=== PATIENT | female | born 1960 | race Caucasian/White ===

== ENCOUNTER 2018-03-22 13:34 | Inpatient (IN) ==
[2018-03-22] MEDS ORDERED: Vancomycin 1,000 MG VIAL IVPB ONE (13:47)
[2018-03-22] MEDS ORDERED: Piperacillin/Tazobactam 3.375 GM in 0.9 % Sodium Chloride Mini Bag 100 ML IVPB ONE (13:47)
[2018-03-22] MEDS ORDERED: methylPREDNISolone 125 MG/2 ML VIAL IVP ONE (13:49)
[2018-03-22] MEDS ORDERED: Ipratropium/Albuterol Neb 3 ML IH ONE (13:49)
[2018-03-22] MEDS ORDERED: Isovue-370 500 ML INFUS..BTL IV ONE (13:49)
--- NOTE | 2018-03-22 14:10 | Emergency Department Note ---
Disposition Clinical Impression: Acute exacerbation of chronic obstructive airways disease, Hypoxia Community acquired pneumonia Qualifiers: Laterality: unspecified laterality Qualified Code(s): J18.9 - Pneumonia, unspecified organism Acute and chronic respiratory failure Qualifiers: Respiratory failure complication: hypoxia Qualified Code(s): J96.21 - Acute and chronic respiratory failure with hypoxia Disposition: Admitted As Inpatient Condition: Good Referrals: Neeraj Heller, PAC [Physician Fitness Professional] - Time of Disposition: 16:46 General Adult HPI - General Stated complaint: DAYSI Time Seen by Provider: 03/22/18 13:41 Source: patient Limitations: no limitations Nursing Notes Reviewed: Yes Vital Signs Reviewed: Yes - History of Present Illness HPI Narrative: Ms. Dooley is a very pleasant 58-year-old female with a past history of COPD who presents to the [facility] emergency department with a chief complaint of shortness breath. She reports that the symptoms been present for the last several days. Patient was last seen for these complaints on 02/16/18. There [facility] emergency department was not have a COPD exacerbation. Patient did receive Levaquin, breathing treatments and was discharged home on steroids after patient refused admission. That was states that her shortness of breath is worse this time around compared to last time. Patient denies any recent sick contacts or recent illnesses. Patient was recently seen last week for these complaints and was only given additional breathing treatments to take at home. No further antibiotics or steroids were given. Patient denies any other complaints such as chest pain, nausea vomiting , diaphoresis, abdominal pain, fevers, headache, change in vision, worsening lower extremity edema. Patient is still smoking 0.5 packs per day. All other complaints at this time. Pain Scale: 0 - Related Data Home Medications Medication Instructions Recorded Confirmed Buprenorphine HCl/Naloxone HCl 1.75 each SL DAILY 03/22/18 03/22/18 [Suboxone 8 mg-2 mg Sl Film] Gabapentin [Neurontin] 600 mg PO TID 03/22/18 03/22/18 Allergies Allergy/AdvReac Type Severity Reaction Status Date / Time Iodinated Contrast- Oral and Allergy Rash Verified 03/22/18 15:34 IV Dye Review of Systems: As Per HPI Past Medical History - Past Medical History Medical history: Reports: arthritis, COPD Surgical history: Reports: appendectomy, cholecystectomy, hysterectomy, knee replacement, pacemaker/AICD Psychiatric history: Reports: anxiety, bipolar, depression PYROTECHNICIAN history: Reports: non-contributory - Social History Smoking Status: Current every day smoker Smokeless Tobacco Status: No Alcohol use: Reports: none Drug use: Reports: none Physical Exam CONSTITUTIONAL: Alert and oriented X3 in mild respiratory distress HEAD: Normocephalic; atraumatic. RESP: NRD without use of accessory musculature, diffuse coarse crackles CARD: Regular rhythm, without murmurs, rubs, or gallop ABD: grossly normal, soft, non-tender, no guarding/distention/rigidity SKIN: normal appearance, no pallor/diaphoresis,mottling,jaundice,cyanosis EXT: DP/Rad pulses 2+ and symmetrical; no lateralizing edema with chronic lymphedema PSYCH: appropriate mood/affect - General Limitations: no limitations General appearance: alert Course Course Narrative: Patient was seen and examined at bedside. Initial vitals demonstrated hypoxia of 70% on room air. 6 L of O2 was applied and oxygenation increased to 85%. Respiratory was contacted to administer BiPAP. Physical examination demonstrates patient who is in mild acute respiratory distress. Patient reviews diffuse coarse crackles. Remainder of physical exam was unremarkable. Patient has responded well to BiPAP oxygenation up into the 90s. Patient will be given steroids, breathing treatments will be covered with IV antibiotics with Zosyn and vancomycin. Blood cultures, CBC, CMP, lactic acid, BNP, coags, troponin, 12-lead EKG and CT of the chest will be ordered. Anticipate patient will be admitted for acute on chronic respiratory failure secondary to COPD exacerbation. Disposition pending. 1646: Chest x-ray shows mild atelectasis. CBC shows mild leukocytosis of 15.2. Remainder of the CMP, CBC, lactic acid, BNP, coags and twelve-lead EKG were unremarkable. Troponin came back at 0.20. Patient was given 325 aspirin. Repeat 12-lead EKG demonstrated no further ischemic changes. Patient was slated for CT of the chest rule out possible PE but the IV access failed all she was at CT and had to cancel the study. Patient will be redosed and rescheduled for repeat CTA of the chest. Patient appears comfortable and hemodynamically stable at this time. Patient has been tolerating BiPAP without concern. Discussed the case with hospitalist, Dr. Luna who took the patient for admission. No further recommendations per hospital team. Patient will be transported up to the floor prior to her repeat CTA. This disposition and plan was discussed with patient who understands and agrees. All questions and concerns were addressed. Vital Signs Temperature 98.7 F 03/22/18 13:39 Pulse Rate 106 03/22/18 13:39 Respiratory Rate 16 03/22/18 13:39 Blood Pressure 72/53 03/22/18 13:39 O2 Sat by Pulse Oximetry 79 03/22/18 13:39 Temperature 98.7 F 03/22/18 13:39 Pulse Rate 95 03/22/18 15:24 Respiratory Rate 20 03/22/18 16:43 Blood Pressure 113/81 03/22/18 15:24 O2 Sat by Pulse Oximetry 95 03/22/18 15:24 Oxygen Delivery Oxygen Delivery Bipap Medical Decision Making - Medical Records Medical records reviewed: Yes I reviewed the patient's medical records. - Lab Data Lab results reviewed: Yes I reviewed the patient's lab results. Result diagrams: 03/22/18 14:12 03/22/18 14:12 Lab Results 03/22/18 03/22/18 03/22/18 Range/Units 14:12 14:12 14:12 WBC 15.5 H (4.3-11.1) K/mcL RBC 5.53 H (3.82-4.97) M/mcL Hgb 15.9 H (11.5-15.4) g/dL Hct 50.4 H (35.3-44.9) % MCV 91.1 (83.0-100.0) fL MCH 28.8 (28.0-33.3) pg MCHC 31.5 L (31.6-35.5) g/dL RDW 17.9 H (11.5-14.5) % Plt Count 227 (140-400) K/mcL MPV 10.3 (9.4-12.4) fL Immature Gran % 0.6 (0-4) % Seg Neutrophils % 87.7 % Lymphocytes % 4.7 % Monocytes % 6.8 % Eosinophils % 0.0 % Basophils % 0.2 % Neutrophils # 13.6 H (1.6-8.9) K/mcL Lymphocytes # 0.7 (0.6-4.6) K/mcL Monocytes # 1.1 (0.0-1.3) K/mcL Eosinophils # 0.0 (0.0-0.6) K/mcL Basophils # 0.0 (0.0-0.2) K/mcL PT 13.5 H (9.4-12.1) Seconds INR 1.2 APTT 29.7 (26.0-36.0) Seconds Sodium (136-145) mEq/L Potassium (3.5-5.1) mEq/L Chloride (98-107) mEq/L Carbon Dioxide (23-29) mEq/L BUN (6-20) mg/dL Creatinine (0.60-1.20) mg/dL Est GFR ( Amer) (> 60) Est GFR (Non-Af Amer) (> 60) BUN/Creatinine Ratio (6-26) Glucose (70-105) mg/dL Calculated Osmolality (280-300) Lactic Acid (0.5-2.2) mmol/L Calcium (8.6-10.3) mg/dL Total Bilirubin 1.2 H (0.3-1.0) mg/dL Direct Bilirubin 0.4 H (0.0-0.2) mg/dL Indirect Bilirubin 0.8 (0.0-1.2) mg/dL AST 34 (13-39) Units/L ALT 34 (7-52) Units/L Alkaline Phosphatase 116 H (34-104) Units/L Troponin I (< 0.04) ng/mL B-Natriuretic Peptide (Less than 100) pg/mL Serum Total Protein 7.4 (6.4-8.9) g/dL Albumin 3.9 (3.5-5.7) g/dL Globulin 3.5 (2.4-3.5) g/dL Albumin/Globulin Ratio 1.1 (1.1-2.2) 03/22/18 03/22/18 03/22/18 Range/Units 14:12 14:12 14:12 WBC (4.3-11.1) K/mcL RBC (3.82-4.97) M/mcL Hgb (11.5-15.4) g/dL Hct (35.3-44.9) % MCV (83.0-100.0) fL MCH (28.0-33.3) pg MCHC (31.6-35.5) g/dL RDW (11.5-14.5) % Plt Count (140-400) K/mcL MPV (9.4-12.4) fL Immature Gran % (0-4) % Seg Neutrophils % % Lymphocytes % % Monocytes % % Eosinophils % % Basophils % % Neutrophils # (1.6-8.9) K/mcL Lymphocytes # (0.6-4.6) K/mcL Monocytes # (0.0-1.3) K/mcL Eosinophils # (0.0-0.6) K/mcL Basophils # (0.0-0.2) K/mcL PT (9.4-12.1) Seconds INR APTT (26.0-36.0) Seconds Sodium 136 (136-145) mEq/L Potassium 4.2 (3.5-5.1) mEq/L Chloride 99 (98-107) mEq/L Carbon Dioxide 30 H (23-29) mEq/L BUN 35 H (6-20) mg/dL Creatinine 1.00 (0.60-1.20) mg/dL Est GFR ( Amer) > 60 (> 60) Est GFR (Non-Af Amer) 57 L (> 60) BUN/Creatinine Ratio 35 H (6-26) Glucose 128 H (70-105) mg/dL Calculated Osmolality 292 (280-300) Lactic Acid 1.4 (0.5-2.2) mmol/L Calcium 9.2 (8.6-10.3) mg/dL Total Bilirubin (0.3-1.0) mg/dL Direct Bilirubin (0.0-0.2) mg/dL Indirect Bilirubin (0.0-1.2) mg/dL AST (13-39) Units/L ALT (7-52) Units/L Alkaline Phosphatase (34-104) Units/L Troponin I 0.20 H* (< 0.04) ng/mL B-Natriuretic Peptide 247 H (Less than 100) pg/mL Serum Total Protein (6.4-8.9) g/dL Albumin (3.5-5.7) g/dL Globulin (2.4-3.5) g/dL Albumin/Globulin Ratio (1.1-2.2) - Radiology Data Radiology results reviewed: Yes I reviewed the patient's radiology results. Chest X-Ray 03/22/18 13:48 IMPRESSION: Minimal linear atelectasis right mid lung new from prior exam. D/ / 03/22/2018 14:33:40 Alejandro Tejada MD / ata Interpreting Provider: Alejandro Tejada MD Chest X-Ray 03/22/18 13:48 IMPRESSION: Minimal linear atelectasis right mid lung new from prior exam. D/ / 03/22/2018 14:33:40 Alejandro Tejada MD / ata Interpreting Provider: Alejandro Tejada MD - EKG Data EKG #1 EKG attestation: Yes I reviewed and interpreted this EKG. EKG #2 EKG attestation: Yes I reviewed and interpreted this EKG. Attestation Statement - Attestation Attestation: I, Winston Reyes DO, examined this patient [id number] and my medical decision-making was reviewed with Ranjith Hicks PGY-1, Resident Physician. I agree with the documented findings, disposition and treatment plan as described except to the extent set forth below. Please see my progress notes for details.
--- NOTE | 2018-03-22 14:48 | Emergency Department Note ---
Disposition Clinical Impression: Acute exacerbation of chronic obstructive airways disease, Community acquired pneumonia, Hypoxia Disposition: Admitted As Inpatient Condition: Fair Referrals: Neeraj Heller, PAC [Primary Care Provider] - Time of Disposition: 16:30 General Adult HPI - General Chief complaint: ED Shortness of Breath/Dyspnea Stated complaint: DAYSI Time Seen by Provider: 03/22/18 13:41 Source: patient Limitations: no limitations - History of Present Illness Pain Scale: 0 - Related Data Home Medications Medication Instructions Recorded Confirmed Buprenorphine HCl/Naloxone HCl 1.75 each SL DAILY 03/22/18 03/22/18 [Suboxone 8 mg-2 mg Sl Film] Gabapentin [Neurontin] 600 mg PO TID 03/22/18 03/22/18 Allergies Allergy/AdvReac Type Severity Reaction Status Date / Time Iodinated Contrast- Oral and Allergy Rash Verified 03/22/18 15:34 IV Dye Past Medical History - Past Medical History Medical history: Reports: arthritis, COPD Surgical history: Reports: appendectomy, cholecystectomy, hysterectomy, knee replacement, pacemaker/AICD Psychiatric history: Reports: anxiety, bipolar, depression ADVANCE SCOUT history: Reports: non-contributory - Social History Smoking Status: Current every day smoker Smokeless Tobacco Status: No Alcohol use: Reports: none Drug use: Reports: none Physical Exam - General Limitations: no limitations General appearance: alert Course Vital Signs Temperature 98.7 F 03/22/18 13:39 Pulse Rate 106 03/22/18 13:39 Respiratory Rate 16 03/22/18 13:39 Blood Pressure 72/53 03/22/18 13:39 O2 Sat by Pulse Oximetry 79 03/22/18 13:39 Temperature 98.7 F 03/22/18 13:39 Pulse Rate 95 03/22/18 15:24 Respiratory Rate 20 03/22/18 15:24 Blood Pressure 113/81 03/22/18 15:24 O2 Sat by Pulse Oximetry 95 03/22/18 15:24 Oxygen Delivery Oxygen Delivery Bipap Medical Decision Making - Lab Data Result diagrams: 03/22/18 14:12 03/22/18 14:12 Lab Results 03/22/18 03/22/18 03/22/18 Range/Units 14:12 14:12 14:12 WBC 15.5 H (4.3-11.1) K/mcL RBC 5.53 H (3.82-4.97) M/mcL Hgb 15.9 H (11.5-15.4) g/dL Hct 50.4 H (35.3-44.9) % MCV 91.1 (83.0-100.0) fL MCH 28.8 (28.0-33.3) pg MCHC 31.5 L (31.6-35.5) g/dL RDW 17.9 H (11.5-14.5) % Plt Count 227 (140-400) K/mcL MPV 10.3 (9.4-12.4) fL Immature Gran % 0.6 (0-4) % Seg Neutrophils % 87.7 % Lymphocytes % 4.7 % Monocytes % 6.8 % Eosinophils % 0.0 % Basophils % 0.2 % Neutrophils # 13.6 H (1.6-8.9) K/mcL Lymphocytes # 0.7 (0.6-4.6) K/mcL Monocytes # 1.1 (0.0-1.3) K/mcL Eosinophils # 0.0 (0.0-0.6) K/mcL Basophils # 0.0 (0.0-0.2) K/mcL PT 13.5 H (9.4-12.1) Seconds INR 1.2 APTT 29.7 (26.0-36.0) Seconds Sodium (136-145) mEq/L Potassium (3.5-5.1) mEq/L Chloride (98-107) mEq/L Carbon Dioxide (23-29) mEq/L BUN (6-20) mg/dL Creatinine (0.60-1.20) mg/dL Est GFR ( Amer) (> 60) Est GFR (Non-Af Amer) (> 60) BUN/Creatinine Ratio (6-26) Glucose (70-105) mg/dL Calculated Osmolality (280-300) Lactic Acid (0.5-2.2) mmol/L Calcium (8.6-10.3) mg/dL Total Bilirubin 1.2 H (0.3-1.0) mg/dL Direct Bilirubin 0.4 H (0.0-0.2) mg/dL Indirect Bilirubin 0.8 (0.0-1.2) mg/dL AST 34 (13-39) Units/L ALT 34 (7-52) Units/L Alkaline Phosphatase 116 H (34-104) Units/L Troponin I (< 0.04) ng/mL B-Natriuretic Peptide (Less than 100) pg/mL Serum Total Protein 7.4 (6.4-8.9) g/dL Albumin 3.9 (3.5-5.7) g/dL Globulin 3.5 (2.4-3.5) g/dL Albumin/Globulin Ratio 1.1 (1.1-2.2) 03/22/18 03/22/18 03/22/18 Range/Units 14:12 14:12 14:12 WBC (4.3-11.1) K/mcL RBC (3.82-4.97) M/mcL Hgb (11.5-15.4) g/dL Hct (35.3-44.9) % MCV (83.0-100.0) fL MCH (28.0-33.3) pg MCHC (31.6-35.5) g/dL RDW (11.5-14.5) % Plt Count (140-400) K/mcL MPV (9.4-12.4) fL Immature Gran % (0-4) % Seg Neutrophils % % Lymphocytes % % Monocytes % % Eosinophils % % Basophils % % Neutrophils # (1.6-8.9) K/mcL Lymphocytes # (0.6-4.6) K/mcL Monocytes # (0.0-1.3) K/mcL Eosinophils # (0.0-0.6) K/mcL Basophils # (0.0-0.2) K/mcL PT (9.4-12.1) Seconds INR APTT (26.0-36.0) Seconds Sodium 136 (136-145) mEq/L Potassium 4.2 (3.5-5.1) mEq/L Chloride 99 (98-107) mEq/L Carbon Dioxide 30 H (23-29) mEq/L BUN 35 H (6-20) mg/dL Creatinine 1.00 (0.60-1.20) mg/dL Est GFR ( Amer) > 60 (> 60) Est GFR (Non-Af Amer) 57 L (> 60) BUN/Creatinine Ratio 35 H (6-26) Glucose 128 H (70-105) mg/dL Calculated Osmolality 292 (280-300) Lactic Acid 1.4 (0.5-2.2) mmol/L Calcium 9.2 (8.6-10.3) mg/dL Total Bilirubin (0.3-1.0) mg/dL Direct Bilirubin (0.0-0.2) mg/dL Indirect Bilirubin (0.0-1.2) mg/dL AST (13-39) Units/L ALT (7-52) Units/L Alkaline Phosphatase (34-104) Units/L Troponin I 0.20 H* (< 0.04) ng/mL B-Natriuretic Peptide 247 H (Less than 100) pg/mL Serum Total Protein (6.4-8.9) g/dL Albumin (3.5-5.7) g/dL Globulin (2.4-3.5) g/dL Albumin/Globulin Ratio (1.1-2.2) Attestation Statement - Attestation Attestation: I, Winston Reyes DO, examined this patient [id number] and my medical decision-making was reviewed with Ranjith Hicks PGY-1, Resident Physician. I agree with the documented findings, disposition and treatment plan as described except to the extent set forth below. Please see my progress notes for details. 58-year-old female presents to the emergency room with increased work of breathing, hypoxia, hypotension. In the triage process the patient's blood pressure was 72/56. She was also hypoxic around the 70s. Patient denies any trauma or injury. She has been intermittently sick with upper respiratory like symptoms as well as COPD exacerbation over the last several weeks. Patient was seen here approximately 1 month ago by myself and electively decided to be discharged home despite concern for COPD exacerbation and failed outpatient management. Patient does not use oxygen at home and does not have any other specific medical issues at this point. Patient on physical exam does have accessory muscle use she is acutely short of breath and conversationally dyspneic. Vital signs reviewed nurse concerning at this point for hypotension and hypoxia. Immediately respiratory was called secondary to request a have BiPAP and breathing treatments on steroids. Patient does not coarse crackles bilaterally in the lungs. Her heart is tachycardic. Abdomen is soft nontender nondistended no guarding or rigidity. She does have swelling to the bilateral lower extremities at this time with no other acute signs of redness swelling or irritation. Pulses are intact. Patient will also require admission at this time secondary to failed continuation of outpatient treatment. She will be given IV antibiotics fluids nausea medication, breathing treatments and steroids with antibiotics in emergency room. Patient's symptoms will be stabilized and disposition to be determined. See detailed documentation of the physical exam, medical intervention, medical decision-making, disposition and the resident physician's note. No critical care provider this patient's treatment course at this time. [address] over for [address] angiography of the chest. She has a positive chest x- ray with possible pneumonia versus atelectasis. Patient started been started on antibiotics. Patient's pulse ox of breathing of become much less labored and she is resting comfortably in the bed. Her pulse ox is been 96 200% on oxygen of the BiPAP. Patient's labs are unremarkable except for significantly elevated troponin at 0.20. Patient is still denying any chest pain. Most of the symptoms could be consistent or secondary to the patient's respiratory distress. Patient also has a slightly elevated BNP. Diuresis will be held at this point and patient's own passive diuresis will be allowed to take over considering she was initially hypotensive. Patient CT angiography was attempted and infiltrated the idea that time. The extravasation protocol will be started. Patient will be discussed for possible GI bleed or other vaginal related bleeding at this point initially is negative then will discuss with the hospital as possible given her single dose of Lovenox repeat his CT angiography in the inpatient setting despite the fact that we feel most of her symptoms are secondary to severe COPD exacerbation along with her pneumonia. Patient will be observed in emergency room until admission process is completed. 1625 The patient was discussed with the hospitalist. We will get the CT angiography and transit to the floor. Other recommendations from them this time. Patient was given aspirin here. She does not require anticoagulation this point considering you feel that the troponin is secondary to the increased work of breathing and respiratory distress and not her angina. Patient has not had any chest pain. Her presenting symptoms were hypoxia and increased work of breathing. Patient is otherwise clinically stable but requires hospital admission for COPD, CHF, elevated troponin and what appears to be respiratory driven symptoms at this time.
[2018-03-22 15:15] LABS: Basophils % 0.2 %; Hematocrit 50.4 % (35.3-44.9); Hemoglobin 15.9 g/dL (11.5-15.4); Immature Granulocytes % 0.6 % (0-4); Lymphocytes # 0.7 K/mcL (0.6-4.6); Lymphocytes % 4.7 %; Mean Corpuscular HGB Conc 31.5 g/dL (31.6-35.5); Mean Corpuscular Hemoglobin 28.8 pg (28.0-33.3); Mean Corpuscular Volume 91.1 fL (83.0-100.0); Mean Platelet Volume 10.3 fL (9.4-12.4); Monocytes # 1.1 K/mcL (0.0-1.3); Monocytes % 6.8 %; Neutrophils # 13.6 K/mcL (1.6-8.9); Platelet Count 227 K/mcL (140-400); Red Blood Count 5.53 M/mcL (3.82-4.97); Red Cell Distribution Width 17.9 % (11.5-14.5); Segmented Neutrophils % 87.7 %
[2018-03-22 15:17] LABS: INR 1.2; Prothrombin Time 13.5 Seconds (9.4-12.1)
[2018-03-22 15:20] LABS: Activated Partial Thrombo Time 29.7 Seconds (26.0-36.0)
[2018-03-22 15:23] LABS: Albumin 3.9 g/dL (3.5-5.7); Albumin/Globulin Ratio 1.1 (1.1-2.2); Bilirubin,Direct 0.4 mg/dL (0.0-0.2); Bilirubin,Indirect 0.8 mg/dL (0.0-1.2); Bilirubin,Total 1.2 mg/dL (0.3-1.0); Globulin 3.5 g/dL (2.4-3.5); Total Protein 7.4 g/dL (6.4-8.9)
[2018-03-22 15:24] LABS: BUN/Creatinine Ratio 35 (6-26); Blood Urea Nitrogen 35 mg/dL (6-20); Calcium 9.2 mg/dL (8.6-10.3); Carbon Dioxide 30 mEq/L (23-29); Chloride 99 mEq/L (98-107); Glucose 128 mg/dL (70-105); Osmolality,Calculated 292 (280-300); Potassium 4.2 mEq/L (3.5-5.1); Sodium 136 mEq/L (136-145); eGFR For African Americans > 60 (> 60); eGFR For Non-African Americans 57 (> 60)
[2018-03-22] MEDS ORDERED: Aspirin 81 MG TAB.CHEW PO STA (15:32)
[2018-03-22] MEDS ORDERED: *HR* HYDROcodone/Acet 5/325 mg TABLET PO PRN (17:04)
[2018-03-22] MEDS ORDERED: Acetaminophen 325 MG TABLET PO PRN (17:04)
[2018-03-22] MEDS ORDERED: Naloxone 0.4 MG/ML INJ IVP PRN (17:04)
[2018-03-22] MEDS ORDERED: Benzonatate 100 MG CAPSULE PO PRN (17:10)
--- NOTE | 2018-03-22 17:19 | Internal Med History&Physical ---
<JoanneDarius - Last Filed: 03/22/18 18:05> Date of Encounter: 03/22/18 Time of Encounter: 16:30 Internal Medicine - H&P: HPI Chief complaint: SOB/Dyspnea Admitted From: Emergency Dept Plans for Post Hospital Care: Home History of present illness: Ms. Dooley is a 58 year old female w/PMH of arthritis and COPD presents from the ED w/CC of SOB/dyspnea for the past month. Pt. reports sx have worsened over past week. Reports being seen at [facility] on 02/16 for same sx but refused admission and was discharged on steroids after receiving Levaquin and DuoNebs. Does report sick contacts. No alleviating or aggravating factors. Denies cardiac hx or previous w/u. Pt. reports not feeling well w/cough and orthopnea for past week but denies fever, chills, nausea, vomiting, headache, changes in vision, chest congestion, chest pain, palpitations, abdominal pain, diarrhea, constipation, unusual bleeding, dizziness, lightheadedness, pre-syncope, or syncope. Past Med Surg Social Fam HX - Past Medical History Source: patient, old records reviewed Medical history: arthritis, COPD Psychiatric history: anxiety, bipolar, depression - Past Surgical History Surgical History: appendectomy, cholecystectomy, hysterectomy (Total), knee replacement (Bilateral), pacemaker/AICD - Social History Smoking Status: Current every day smoker Packs per day: 1/2 PPD Smokeless Tobacco Status: No Alcohol use: none Drug use: none Current living situation: Home Activity Level: Independent ambulation Recent Out of Country Travel Within the Last 8 Weeks: No Exposure or Possible Exposure to Illness During Travel: No - Family History Daughter Adopted: No Living Status: Still Living Hx Family Cardiac Disorders: Yes Hx Family Respiratory Disorders: Yes Hx Family Cancer: No Hx Family GI Disorders: No Hx Family Endocrine Disorder: No Hx Family Neuromuscular Disorders: No Hx Family Neurologic Disorders: No Hx Family HEENT Disorders: No Hx Family Autoimmune Disorders: No Father Race: Family Member Ethnicity: Non- Living Status: Age at : 80 Cause of : Lung cancer Hx Family Cardiac Disorders: Yes ([place], HTN, HLD) Hx Family Cancer: Yes (Lung, prostate) Mother Race: Family Member Ethnicity: Non- Living Status: Still Living Hx Family Cardiac Disorders: Yes (HTN) Hx Family Musculoskeletal Disorders: Yes (Arthritis) Brother Race: Family Member Ethnicity: Non- Living Status: Still Living Hx Family Cancer: Yes (Prostate ) Hx Family Endocrine Disorder: Yes (DM) Internal Medicine - H&P: Meds Buprenorphine HCl/Naloxone HCl [Suboxone 8 mg-2 mg Sl Film] 1.75 each SL DAILY 03/22/18 [History] Gabapentin [Neurontin] 600 mg PO TID 03/22/18 [History] 3 Allergy/AdvReac Type Severity Reaction Status Date / Time Iodinated Contrast- Oral and Allergy Rash Verified 03/22/18 15:34 IV Dye All Systems PM: A 10-system review of systems was performed and is negative for pertinent findings except as documented above in the HPI. - Constitutional Constitutional: as per HPI, no chills, no fever(s), no night sweats - EENT Eyes: no change in vision, no discharge, no pain, no photophobia Ears: no ear discharge, no ear pain, no tinnitus Nose, mouth and throat: no dysphagia, no nasal discharge, no neck pain, no sore throat - Breasts Breasts: as per HPI - Cardiovascular Cardiovascular ROS IM: as per HPI, dyspnea, dyspnea on exertion, edema ( Bilateral LEs), orthopnea, no chest pain, no diaphoresis, no lightheadedness, no palpitations, no syncope - Respiratory Respiratory: dyspnea on exertion, no cough, no dyspnea, no wheezing, no excessive phlegm production - Gastrointestinal Gastrointestinal: no abdominal pain, no diarrhea, no hematemesis, no hematochezia, no melena, no nausea, no vomiting - Genitourinary Genitourinary: no change in urinary stream, no dysuria, no flank pain, no hematuria Menstruation: as per HPI, post hysterectomy (Total) - Musculoskeletal Musculoskeletal ROS IM: no numbness, no tingling - Integumentary Integumentary IM: no rash, no unusual bruising - Neurological Neurological ROS: no confusion, no convulsions, no focal weakness, no numbness, no tingling, no tremor(s) - Psychiatric Psychiatric: as per HPI, anxiety, depression - Endocrine Endocrine IM: as per HPI - Hematologic/Lymphatic Hematologic/Lymphatic: no easy bruising - Allergic/Immunologic Allergic/Immunologic: as per HPI - Constitutional Vitals: Temp Pulse Resp BP Pulse Ox 98.7 F 95 20 113/81 95 03/22/18 13:39 03/22/18 15:24 03/22/18 16:43 03/22/18 15:24 03/22/18 15:24 General appearance: Present: cooperative, A&O X 3, morbidly obese, pleasant, severe distress (Respiratory d/t hypoxia requiring BiPAP), answers questions appropriately - Head Head exam: Present: atraumatic, normocephalic - Eye Eye exam: Present: PERRL, conjuntiva pink, sclera anicteric Pupils: Present: PERRL - ENT ENT exam: Present: normal exam - Neck Neck exam general surgery: Present: supple, trachea midline. Absent: lymphadenopathy - Respiratory Respiratory exam: Present: accessory muscle use, decreased breath sounds, wheezes - Cardiovascular Cardiovascular exam: Present: +S1, +S2, tachycardia - GI/Abdominal GI/Abdominal exam: Present: normal bowel sounds, soft, no peritoneal signs. Absent: distended, tenderness - Rectal Rectal exam: Present: deferred - Additional comments: exam deferred. - Extremities Exam Extremities exam: Present: pedal edema (Bilateral non-pitting), warm, radial pulses palpable and symmetrical. Absent: calf tenderness, cyanotic - Back Exam Back exam: Present: normal inspection - Neurological Exam Neurological exam: Present: CN II-XII intact, oriented X3, no focal deficits. Absent: pronater drift, facial droop, speech deficit - Psychiatric Psychiatric exam: Present: normal affect, normal mood - Skin Skin exam: Present: dry, intact Internal Med - H&P Results - Labs CBC & Chem 7: 03/22/18 14:12 03/22/18 14:12 - EKG Data EKG shows normal: sinus rhythm Rate: tachycardia - EKG Data Prior EKG available for review: yes Interpretation IM: suggestive of ischemia EKG comments: 03/22/18 17:30 EKG dated 02/16/19 shows sinus rhythm with left atrial enlargement and marked left axis deviation. EKG dated 03/22/18 shows sinus tachycardia with possible left atrial enlargement , incomplete RBBB, left anterior fascicular block, anterior myocardial infarction of indeterminate age, inferior myocardial infarction of indeterminate age, and moderate T-wave abnormality. Consider lateral ischemia. - Diagnostic Studies Chest x-ray Additional comments: Impressions Chest X-Ray 03/22/18 13:48 IMPRESSION: Minimal linear atelectasis right mid lung new from prior exam. D/ / 03/22/2018 14:33:40 Alejandro Tejada MD / [facility] Interpreting Provider: Alejandro Tejada MD - Assessment and plan (1) Acute exacerbation of chronic obstructive airways disease Current Visit: Yes Status: Acute Assessment and plan: Acute exacerbation of COPD. Failed OP therapy on 02/16/18 ED visit/discharge. Received levaquin, DuoNebs in ED and discharged on steroids when she refused admission. Pt. reports SOB/dyspnea much worse. Cough present. Reports sick contacts. BiPAP and supplemental O2 w/titration when not on BiPAP. DuoNebs Q4HR scheduled. Solu-Medrol 60 mg Q8HR. IVPB azithromycin for bronchitis infection coverage. Respiratory infection panel ordered. Monitor pt., respiratory status, f/u labs closely. Assess for possible intubation needs if no improvement. Pt. discussed w/Dr. Luna who agrees w/plan of care. Pt. is high risk for further morbidity and cardiac/respiratory distress d/t current hypoxia, acute exacerbation of COPD, new onset of CHF exacerbation, morbid obesity, and failure of OP tx one month ago. Inpatient. (2) Acute exacerbation of CHF (congestive heart failure) Current Visit: Yes Status: Acute Assessment and plan: New onset of CHF exacerbation. No previous cardiac w/u. Echocardiogram ordered. BNP 247 on admission. 1.5L daily fluid restriction. 40 mg IVP lasix BID. Continuous cardiac telemetry d/t tachycardia. Pt. hypoxic on admission so BiPAP ordered. SpO2 monitoring. Monitor I&O and daily weight. Qualifiers: Heart failure type: unspecified Qualified Code(s): I50.9 - Heart failure, unspecified (3) Hypoxia Current Visit: Yes Status: Acute Assessment and plan: Acute on chronic hypoxia d/t current COPD exacerbation complicated by new CHF exacerbation. BiPAP ordered. Supplemental O2 w/titration and SpO2 monitoring when not on BiPAP. DuoNebs Q4HR scheduled. Tessalon 200 mg TID for cough. Monitor pt. closely for signs of respiratory distress/intubation needs. (4) Sepsis Current Visit: Yes Status: Acute Assessment and plan: Acute sepsis criteria w/WBC of 15.5, HR of 130, RR of 29. Most-likely d/t current hypoxia, but will monitor pt. closely. Lactic acid 1.4 on admission. Pt. received IVPB vancomycin and Zosyn in the ED. (Continue after administration and administer IVPB azithromycin for bronchitis coverage. Blood cultures x2. Respiratory infection panel ordered. Continuous cardiac telemetry. Supplemental O2 w/titration and SpO2 monitoring. BiPAP on/off times. Monitor pt. and f/u lbs. Qualifiers: Sepsis type: sepsis due to unspecified organism Qualified Code(s): A41.9 - Sepsis, unspecified organism (5) Elevated troponin Current Visit: Yes Status: Acute Assessment and plan: Acutely elevated troponin of 0.20 on admission. Most likely demand ischemia d/t current COPD and CHF exacerbations w/hypoxia. Pt. denies CP or cardiac sx, and previous cardiac w/u. Echocardiogram ordered for new CHF and troponin. Will trend x2. Pt. given 324 mg aspirin in ED. Nitro SL PRN ordered. Continuous cardiac telemetry. (6) ANI (acute kidney injury) Current Visit: Yes Status: Acute Assessment and plan: ANI w/GFR of 57 and creatinine of 1.00. Will use IV fluids judiciously, especially d/t CHF exacerbation. 1.5L daily fluid restriction. Monitor I&O and daily weight. (7) Arthritis Current Visit: Yes Status: Chronic Assessment and plan: Hx of chronic arthritis. Tylenol 650 mg Q6HR PRN for mild pain. Toradol for moderate pain ordered. Continue Neurontin. (8) Anxiety and depression Current Visit: Yes Status: Chronic Assessment and plan: Hx of chronic anxiety and bipolar depression. Pt. states well-controlled. Continue pts. Neurontin. (9) Opiate addiction Current Visit: Yes Status: Chronic Assessment and plan: Hx of chronic addiction to opioids. Monitor pt. and continue Suboxone. Qualifiers: Substance use status: with unspecified opioid-induced disorder Qualified Code(s): F11.29 - Opioid dependence with unspecified opioid-induced disorder (10) DVT prophylaxis Current Visit: Yes Status: Acute Assessment and plan: Heparin 5,000 units SQ Q8 for DVT prophylaxis. Monitor pt. for signs of bleeding. - Time Spent With Patient Total time spent is greater than 50% in coordination of care (as documented) at patient's floor/unit and/or counseling patient: 25 - 35 minutes <Terra Luna - Last Filed: 03/22/18 18:19> Date of Encounter: 03/22/18 Internal Medicine - H&P: HPI History of present illness: Ms. Dooley is a 58 year old female All Systems PM: A 10-system review of systems was performed and is negative for pertinent findings except as documented above in the HPI. - Constitutional Vitals: Temp Pulse Resp BP Pulse Ox 97.6 F 90 20 136/81 92 03/22/18 17:20 03/22/18 17:20 03/22/18 17:20 03/22/18 17:20 03/22/18 17:20 Internal Med - H&P Results - Labs CBC & Chem 7: 03/22/18 14:12 03/22/18 14:12 - Attending Attestation I saw and examined this patient independently, and my medical decision making was reviewed with the FARM HELPER/PA on 2017. I agree with the documented findings, assessment and treatment plan as described in the progress note. - Time Spent With Patient Total time spent is greater than 50% in coordination of care (as documented) at patient's floor/unit and/or counseling patient:
[2018-03-22] MEDS ORDERED: Nitroglycerin 0.4 MG TAB.SUBL SL PRN (17:44)
[2018-03-22] MEDS ORDERED: Azithromycin 500 MG in D5% in Water 250 ML IVPB SCH (18:00)
[2018-03-22] MEDS ORDERED: Ketorolac 15 MG/ML VIAL IVP PRN ×2 (18:03→18:05)
[2018-03-22] MEDS: Nicotine 14 MG PATCH.TD24 TD SCH (18:12)
[2018-03-22] MEDS: Furosemide 40 MG/4 ML VIAL IVP SCH (18:13)
[2018-03-22] MEDS: Gabapentin 300 MG CAPSULE PO SCH (19:46)
[2018-03-22] MEDS: Ipratropium/Albuterol Neb 3 ML IH SCH (20:19)
[2018-03-23] MEDS: Ipratropium/Albuterol Neb 3 ML IH SCH ×7 (00:03→23:25)
[2018-03-23] MEDS: methylPREDNISolone 125 MG/2 ML VIAL IVP SCH ×4 (00:19→23:30)
[2018-03-23] MEDS: *HR* Heparin 5,000 UNIT/ML VIAL SQ SCH ×4 (00:19→23:30)
[2018-03-23 03:10] LABS: Basophils % 0.2 %; Hematocrit 47.7 % (35.3-44.9); Hemoglobin 15.3 g/dL (11.5-15.4); Immature Granulocytes % 0.8 % (0-4); Lymphocytes # 0.5 K/mcL (0.6-4.6); Mean Corpuscular HGB Conc 32.1 g/dL (31.6-35.5); Mean Corpuscular Hemoglobin 29.3 pg (28.0-33.3); Mean Corpuscular Volume 91.2 fL (83.0-100.0); Mean Platelet Volume 10.4 fL (9.4-12.4); Monocytes # 0.4 K/mcL (0.0-1.3); Monocytes % 3.5 %; Neutrophils # 9.2 K/mcL (1.6-8.9); Nucleated Red Blood Cells 0.2 /100 WBC (0); Platelet Count 215 K/mcL (140-400); Red Blood Count 5.23 M/mcL (3.82-4.97); Red Cell Distribution Width 17.9 % (11.5-14.5); Segmented Neutrophils % 90.5 %
[2018-03-23 03:31] LABS: Albumin 3.5 g/dL (3.5-5.7); Bilirubin,Total 0.9 mg/dL (0.3-1.0); Calcium 8.9 mg/dL (8.6-10.3); Chol/HDL Ratio 6.5 (0-4.9); Globulin 3.5 g/dL (2.4-3.5); Magnesium 2.4 mg/dL (1.6-2.6); Potassium 4.8 mEq/L (3.5-5.1)
--- NOTE | 2018-03-23 08:27 | Internal Med Progress Note ---
<Santos Luna - Last Filed: 03/23/18 08:23> Date of Encounter: 03/23/18 Time of Encounter: 08:15 - Assessment and plan (1) Acute exacerbation of chronic obstructive airways disease Current Visit: Yes Status: Acute Assessment and plan: Improved. Currently on 6L O2 NC. Acute exacerbation of COPD. Failed OP therapy on 02/16/18 ED visit/discharge. Received levaquin, DuoNebs in ED and discharged on steroids when she refused admission. Continue BiPAP and supplemental O2 w/titration when not on BiPAP. Continue DuoNebs Q4HR scheduled, Solu-Medrol 60 mg Q8HR. IVPB azithromycin for bronchitis infection coverage Day #2. Respiratory infection panel pending. Monitor pt., respiratory status, f/u labs closely. (2) Hypoxia Current Visit: Yes Status: Acute Assessment and plan: Acute on chronic hypoxia d/t current COPD exacerbation complicated by new CHF exacerbation. BiPAP ordered. Supplemental O2 w/titration and SpO2 monitoring when not on BiPAP. DuoNebs Q4HR scheduled. Tessalon 200 mg TID for cough. Monitor pt. closely for signs of respiratory distress/intubation needs. (3) Acute exacerbation of CHF (congestive heart failure) Current Visit: Yes Status: Acute Assessment and plan: New onset of CHF exacerbation. No previous cardiac w/u. Echocardiogram later today. BNP 247 on admission. 1.5L daily fluid restriction. 40 mg IVP lasix BID. Continuous cardiac telemetry d/t tachycardia. Pt. hypoxic on admission so BiPAP ordered. SpO2 monitoring. Monitor I&O and daily weight. Qualifiers: Heart failure type: unspecified Qualified Code(s): I50.9 - Heart failure, unspecified (4) Sepsis Current Visit: Yes Status: Acute Assessment and plan: Improved. Acute sepsis criteria w/WBC of 15.5, HR of 130, RR of 29 on admission. Most-likely d/t current hypoxia. Lactic acid 1.4 on admission. Pt. received IVPB vancomycin and Zosyn in the ED. (Continue after administration and administer IVPB azithromycin for bronchitis coverage. Blood cultures x2. Respiratory infection panel ordered. Continuous cardiac telemetry. Supplemental O2 w/titration and SpO2 monitoring. BiPAP on/off times. Monitor pt. and f/u lbs. Qualifiers: Sepsis type: sepsis due to unspecified organism Qualified Code(s): A41.9 - Sepsis, unspecified organism (5) DVT prophylaxis Current Visit: Yes Status: Acute Assessment and plan: Heparin 5,000 units SQ Q8 for DVT prophylaxis. Monitor pt. for signs of bleeding. (6) Elevated troponin Current Visit: Yes Status: Acute Assessment and plan: Downtrending. Acutely elevated troponin of 0.20 on admission. Most likely demand ischemia d/t current COPD and CHF exacerbations w/hypoxia. Pt. denies CP or cardiac sx, and previous cardiac w/u. Echocardiogram ordered for new CHF and troponin. Will trend x2. Pt. given 324 mg aspirin in ED. Nitro SL PRN ordered. Continuous cardiac telemetry. (7) ANI (acute kidney injury) Current Visit: Yes Status: Acute Assessment and plan: ANI w/GFR of 57 -->49 and creatinine of 1.00 --> 1.14. Will use IV fluids judiciously, especially d/t CHF exacerbation. 1.5L daily fluid restriction. Monitor I&O and daily weight. (8) Arthritis Current Visit: Yes Status: Chronic Assessment and plan: Hx of chronic arthritis. Tylenol 650 mg Q6HR PRN for mild pain. Toradol for moderate pain ordered. Continue Neurontin. (9) Anxiety and depression Current Visit: Yes Status: Chronic Assessment and plan: Hx of chronic anxiety and bipolar depression. Pt. states well-controlled. Continue pts. Neurontin. (10) Opiate addiction Current Visit: Yes Status: Chronic Assessment and plan: Hx of chronic addiction to opioids. Monitor pt. and continue Suboxone. Qualifiers: Substance use status: with unspecified opioid-induced disorder Qualified Code(s): F11.29 - Opioid dependence with unspecified opioid-induced disorder - Time Spent With Patient Total time spent is greater than 50% in coordination of care (as documented) at patient's floor/unit and/or counseling patient: Greater than 35 minutes - Subjective Interval history: Patient reports improvement of shortness of breath, currently on 6L. She was admitted for COPD exacerbation last month and declares no complete resolution of symptoms since that discharge. She denies chest pain, abdominal pain, f/c/v. Does have some nausea. Ate breakfast today. Echo pending. Takes no medications at home except for steroids and gabapentin. No oxygen at home. Not ambulating since admission. No further complaints. - Constitutional Vitals: Temp Pulse Resp BP Pulse Ox 96.5 F L 71 16 116/75 94 03/23/18 06:46 03/23/18 06:46 03/23/18 06:46 03/23/18 06:46 03/23/18 06:46 General appearance: Present: cooperative, A&O X 3, morbidly obese, pleasant, severe distress (Respiratory d/t hypoxia requiring BiPAP), answers questions appropriately - Head Head exam: Present: atraumatic, normocephalic - Eye Eye exam: Present: PERRL, conjuntiva pink, sclera anicteric Pupils: Present: PERRL - Neck Neck exam general surgery: Present: supple, trachea midline. Absent: lymphadenopathy - Respiratory Respiratory exam: Present: rales, wheezes. Absent: accessory muscle use, rhonchi - Cardiovascular Cardiovascular exam: Present: RRR, +S1, +S2. Absent: diastolic murmur, gallop, rubs, systolic murmur - GI/Abdominal GI/Abdominal exam: Present: normal bowel sounds, soft, no peritoneal signs. Absent: distended, tenderness - Extremities Exam Extremities exam: Present: warm, radial pulses palpable and symmetrical. Absent : calf tenderness, cyanotic, pedal edema - Neurological Exam Neurological exam: Present: CN II-XII intact, oriented X3, no focal deficits. Absent: pronater drift, facial droop, speech deficit - Skin Skin exam: Present: dry, intact Internal Medicine: Result - Labs CBC & Chem 7: 03/23/18 02:56 03/23/18 02:56 Labs: Short CBC 03/23/18 Range/Units 02:56 WBC 10.1 (4.3-11.1) K/mcL Hgb 15.3 (11.5-15.4) g/dL Hct 47.7 H (35.3-44.9) % Plt Count 215 (140-400) K/mcL Neutrophils # 9.2 H (1.6-8.9) K/mcL BMP 03/23/18 02:56 Sodium 138 Potassium 4.8 Chloride 103 Carbon Dioxide 28 BUN 36 H Creatinine 1.14 Glucose 138 H Calcium 8.9 Cardiac Enzymes 03/22/18 03/23/18 Range/Units 20:12 02:56 Troponin I 0.13 H* 0.10 H* (< 0.04) ng/mL Liver Function 03/23/18 Range/Units 02:56 Total Bilirubin 0.9 (0.3-1.0) mg/dL AST 27 (13-39) Units/L ALT 26 (7-52) Units/L Alkaline Phosphatase 93 (34-104) Units/L Albumin 3.5 (3.5-5.7) g/dL - ABG Interpretation ABG results: PT/INR, D-dimer PT 13.5 Seconds (9.4-12.1) H 03/22/18 14:12 Consult Discharge Plan - Plan Referrals: Neeraj Heller, PAC [Primary Care Provider] - <Derick Bain H - Last Filed: 03/23/18 11:40> Date of Encounter: 03/23/18 - Assessment and plan (1) Acute exacerbation of chronic obstructive airways disease Current Visit: Yes Status: Acute (2) Hypoxia Current Visit: Yes Status: Acute (3) Acute exacerbation of CHF (congestive heart failure) Current Visit: Yes Status: Acute Qualifiers: Heart failure type: unspecified Qualified Code(s): I50.9 - Heart failure, unspecified (4) Sepsis Current Visit: Yes Status: Acute Qualifiers: Sepsis type: sepsis due to unspecified organism Qualified Code(s): A41.9 - Sepsis, unspecified organism (5) DVT prophylaxis Current Visit: Yes Status: Acute (6) Elevated troponin Current Visit: Yes Status: Acute (7) ANI (acute kidney injury) Current Visit: Yes Status: Acute (8) Arthritis Current Visit: Yes Status: Chronic (9) Anxiety and depression Current Visit: Yes Status: Chronic (10) Opiate addiction Current Visit: Yes Status: Chronic Qualifiers: Substance use status: with unspecified opioid-induced disorder Qualified Code(s): F11.29 - Opioid dependence with unspecified opioid-induced disorder - Time Spent With Patient Total time spent is greater than 50% in coordination of care (as documented) at patient's floor/unit and/or counseling patient: - Constitutional Vitals: Temp Pulse Resp BP Pulse Ox 98.5 F 80 16 128/78 91 03/23/18 11:24 03/23/18 11:24 03/23/18 11:24 03/23/18 11:24 04/30/18 11:24 Internal Medicine: Result - Labs CBC & Chem 7: 03/23/18 02:56 03/23/18 02:56 Labs: Short CBC 03/23/18 Range/Units 02:56 WBC 10.1 (4.3-11.1) K/mcL Hgb 15.3 (11.5-15.4) g/dL Hct 47.7 H (35.3-44.9) % Plt Count 215 (140-400) K/mcL Neutrophils # 9.2 H (1.6-8.9) K/mcL BMP 03/23/18 02:56 Sodium 138 Potassium 4.8 Chloride 103 Carbon Dioxide 28 BUN 36 H Creatinine 1.14 Glucose 138 H Calcium 8.9 Cardiac Enzymes 03/22/18 03/23/18 Range/Units 20:12 02:56 Troponin I 0.13 H* 0.10 H* (< 0.04) ng/mL Liver Function 03/23/18 Range/Units 02:56 Total Bilirubin 0.9 (0.3-1.0) mg/dL AST 27 (13-39) Units/L ALT 26 (7-52) Units/L Alkaline Phosphatase 93 (34-104) Units/L Albumin 3.5 (3.5-5.7) g/dL - ABG Interpretation ABG results: PT/INR, D-dimer PT 13.5 Seconds (9.4-12.1) H 03/22/18 14:12 - Attending Attestation Acute hypoxic respiratory failure secondary to acute COPD exacerbation due to community-acquired pneumonia unknown agent in combination with possible pulmonary congestion/pulmonary edema, no history of CHF Stop azithromycin and start IV Levaquin Continue IV Solu-Medrol, oxygen therapy, consider ordering ABG not improving Blood cultures pending Tobacco abuse, smoking cessation counseling Hypertension, losartan is on hold I examined this patient and my medical decision-making was reviewed with the Resident Physician. I agree with the documented findings, disposition and treatment plan as described except to the extent set forth below.
[2018-03-23] MEDS: Aspirin Enteric Coated 81 MG Tablet PO SCH (08:49)
[2018-03-23] MEDS: Furosemide 40 MG/4 ML VIAL IVP SCH (08:50)
[2018-03-23] MEDS: Nicotine 14 MG PATCH.TD24 TD SCH (08:50)
[2018-03-23] MEDS: Gabapentin 300 MG CAPSULE PO SCH ×3 (09:03→23:30)
[2018-03-23 09:27] LABS: Estimated Average Glucose 131 mg/dl; Hemoglobin A1C 6.2 %
[2018-03-23] MEDS ORDERED: levoFLOXacin 500 MG TABLET PO ONE (11:32)
[2018-03-23] MEDS: Levofloxacin 750 MG/150 ML 750 MG/150 ML BAG IVPB SCH (12:30)
--- NOTE | 2018-03-23 16:38 | Electrocardiograph Report ---
[address] [place], [place] [address] Test Date: 2018-03-22 Pat Name: [facility] Department: 104 Room: 2NE18 Gender: F Head Of Business Development: KEMAL : 1960 Requested By: Winston Reyes Order Number: [id number] Reading MD: Mariya Mcnair Measurements Intervals [place] Rate: 93 P: 60 PA: 167 QRS: -38 QRSD: 104 T: -22 QT: 379 QTc: 430 Interpretive Statements ARTIFACT LIMITS DATA QUALITY RECOMMEND REPEATING ECG Electronically Signed On 03-23-2018 16:36:33 EDT by Mariya Mcnair
[2018-03-23 17:48] LABS: Adenovirus Not Detected (Not Detect); Bordetella Pertussis Not Detected (Not Detect); Chlamydophila pneumoniae Not Detected (Not Detect); Coronavirus 229E Not Detected (Not Detect); Coronavirus HKU1 Not Detected (Not Detect); Coronavirus NL63 Not Detected (Not Detect); Coronavirus OC43 Not Detected (Not Detect); Human Metapneumovirus Not Detected (Not Detect); Human Rhinovirus/Enterovirus ***DETECTED*** (Not Detect); Influenza A Subtype 2009 H1 Not Detected (Not Detect); Influenza A Untypeable Not Detected (Not Detect); Influenza B Not Detected (Not Detect); Mycoplasma pneumoniae Not Detected (Not Detect); Parainfluenza Virus 1 Not Detected (Not Detect); Parainfluenza Virus 2 Not Detected (Not Detect); Parainfluenza Virus 3 Not Detected (Not Detect); Parainfluenza Virus 4 Not Detected (Not Detect); Respiratory Syncytial Virus Not Detected (Not Detect)
--- NOTE | 2018-03-23 18:58 | Electrocardiograph Report ---
[facility] Test Date: 2018-03-22 Pat Name: Suze Dooley Department: 104 Room: 2NE18 Gender: F Energy Crop Farmer: KEMAL : 1960 Requested By: Winston Reyes Order Number: [id number] Reading MD: Morgan Jacobo Measurements Intervals [place] Rate: 103 P: 66 MD: 164 QRS: -50 QRSD: 93 T: -8 QT: 344 QTc: 404 Interpretive Statements SINUS TACHYCARDIA INCOMPLETE RIGHT BUNDLE BRANCH BLOCK LEFT ANTERIOR FASCICULAR BLOCK ANTERIOR MYOCARDIAL INFARCTION INFERIOR MYOCARDIAL INFARCTION MODERATE T-WAVE ABNORMALITY, CONSIDER LATERAL ISCHEMIA Electronically Signed On 03-23-2018 18:56:28 EDT by Morgan Jacobo
[2018-03-24] MEDS: Ipratropium/Albuterol Neb 3 ML IH SCH ×6 (03:40→23:18)
--- NOTE | 2018-03-24 08:22 | Internal Med Progress Note ---
<Santos Luna - Last Filed: 03/24/18 14:44> Date of Encounter: 03/24/18 Time of Encounter: 09:00 - Assessment and plan (1) Community acquired pneumonia Current Visit: Yes Status: Acute Assessment and plan: Improved. CT with right multi-lobular pneumonia. Patient was at ED for COPDE in January. Received Zosyn and Vanco at ED during this admission. RIP + for enterovirus/rhinovirus. Continue contact precautions. Continue with Levaquin 750 PO day #2. Patient on 6L Oxygen NC. BIPAP at night as needed and supplemental O2 with titration when not on BIPAP Continue DuoNebs Q4HR scheduled, Solu-Medrol 60 mg Q8HR. Plan to switch to prednisone 60mg PO daily tomorrow. Monitor respiratory status, f/u labs closely. Likely discharge with home oxygen. Qualifiers: Laterality: unspecified laterality Qualified Code(s): J18.9 - Pneumonia, unspecified organism (2) Acute exacerbation of chronic obstructive airways disease Current Visit: Yes Status: Acute Assessment and plan: Same as above (3) Hypoxia Current Visit: Yes Status: Acute Assessment and plan: Patient likely has hypoxia secondary to FIDELIA vs obesity, worsened by COPDE and complicated by new CHF exacerbation. Continue BIPAP as needed and Supplemental O2 w/titration and SpO2 monitoring when not on BiPAP. (4) Acute exacerbation of CHF (congestive heart failure) Current Visit: Yes Status: Acute Assessment and plan: New onset of CHF exacerbation. No previous cardiac w/u. Echocardiogram unremarkable. BNP 247 on admission. 1.5L daily fluid restriction. Continue 40 mg IVP lasix BID. Continuous cardiac telemetry d/t tachycardia.SpO2 monitoring. Monitor I&O and daily weight. Qualifiers: Heart failure type: unspecified Qualified Code(s): I50.9 - Heart failure, unspecified (5) DVT prophylaxis Current Visit: Yes Status: Acute Assessment and plan: Heparin 5,000 units SQ Q8 for DVT prophylaxis. Monitor pt. for signs of bleeding. (6) Elevated troponin Current Visit: Yes Status: Acute Assessment and plan: Acutely elevated troponin of 0.20 on admission. Most likely demand ischemia d/t current COPD and CHF exacerbations w/hypoxia. Pt. denies CP or cardiac sx, and previous cardiac w/u. Echocardiogram ordered for new CHF and troponin. Will trend x2. Pt. given 324 mg aspirin in ED. Nitro SL PRN ordered. Continuous cardiac telemetry. (7) ANI (acute kidney injury) Current Visit: Yes Status: Acute Assessment and plan: ANI w/GFR of 57 -->49 and creatinine of 1.00 --> 1.14. Will use IV fluids judiciously, especially d/t CHF exacerbation. 1.5L daily fluid restriction. Monitor I&O and daily weight. (8) Arthritis Current Visit: Yes Status: Chronic Assessment and plan: Hx of chronic arthritis. Tylenol 650 mg Q6HR PRN for mild pain. Toradol for moderate pain ordered. Continue Neurontin. (9) Anxiety and depression Current Visit: Yes Status: Chronic Assessment and plan: Hx of chronic anxiety and bipolar depression. Pt. states well-controlled. Continue pts. Neurontin. (10) Opiate addiction Current Visit: Yes Status: Chronic Assessment and plan: Hx of chronic addiction to opioids. Monitor pt. and continue Suboxone. Qualifiers: Substance use status: with unspecified opioid-induced disorder Qualified Code(s): F11.29 - Opioid dependence with unspecified opioid-induced disorder - Time Spent With Patient Total time spent is greater than 50% in coordination of care (as documented) at patient's floor/unit and/or counseling patient: Greater than 35 minutes - Subjective Interval history: Patient reports improvement of shortness of breath, continues to be on 6L. She was admitted for COPD exacerbation last month and declares no complete resolution of symptoms since that discharge. She denies chest pain, abdominal pain, f/c/v. Tolerating PO intake. Voiding without difficulty. Takes no medications at home except for steroids and gabapentin. No oxygen at home. Not ambulating since admission. Blood was not drawn this AM, contacted RN. No further complaints. - Constitutional Vitals: Temp Pulse Resp BP Pulse Ox 97.8 F 91 16 146/90 94 03/24/18 07:23 03/24/18 07:23 03/24/18 07:35 03/24/18 07:23 03/24/18 07:35 General appearance: Present: cooperative, A&O X 3, morbidly obese, pleasant, severe distress (Respiratory d/t hypoxia requiring BiPAP), answers questions appropriately - Head Head exam: Present: atraumatic, normocephalic - Eye Eye exam: Present: normal appearance, conjuntiva pink, sclera anicteric - Neck Neck exam general surgery: Present: supple, trachea midline. Absent: lymphadenopathy - Respiratory Respiratory exam: Present: rales, wheezes. Absent: accessory muscle use, rhonchi - Cardiovascular Cardiovascular exam: Present: RRR, +S1, +S2. Absent: diastolic murmur, gallop, rubs, systolic murmur - GI/Abdominal GI/Abdominal exam: Present: normal bowel sounds, soft, no peritoneal signs. Absent: distended, tenderness - Extremities Exam Extremities exam: Present: pedal edema, warm, radial pulses palpable and symmetrical. Absent: calf tenderness, cyanotic - Neurological Exam Neurological exam: Present: CN II-XII intact, oriented X3, no focal deficits. Absent: pronater drift, facial droop, speech deficit - Skin Skin exam: Present: dry, intact Internal Medicine: Result - Labs CBC & Chem 7: 03/24/18 11:40 03/24/18 11:40 - ABG Interpretation ABG results: PT/INR, D-dimer PT 13.5 Seconds (9.4-12.1) H 03/22/18 14:12 - Impressions Impressions Echocardiogram 03/23/18 17:10 Impressions: LVEF 60%. Mild left ventricular diastolic dysfunction. Normal right ventricular structure and function. Mild tricuspid regurgitation. Mild-moderate pulmonary hypertension. Left Ventricular Wall Motion: Rest Echo Findings All wall segments showed normal motion. Findings: Study Quality * Technically adequate exam. ECG Findings * Normal sinus rhythm. Left Ventricle * LVEF 60%. * Normal LV chamber size, wall thickness and function. * Mild left ventricular diastolic dysfunction. Right Ventricle * Normal right ventricular structure and function. Left Atrium * Normal left atrial size. Right Atrium * Normal right atrial size. Aortic Valve * No aortic regurgitation. * Aortic valve not well visualized. * No aortic stenosis. Mitral Valve * No mitral regurgitation. * Normal mitral valve structure. * No mitral stenosis. Tricuspid Valve * Normal tricuspid valve structure. * Mild tricuspid regurgitation. * Estimated RA pressure is 3 mmHg. * Estimated RVSP is 48 mmHg. * Mild-moderate pulmonary hypertension. Pulmonic Valve * Pulmonic valve is not well visualized. * No pulmonic stenosis. * No pulmonic regurgitation. Pulmonary Artery * Pulmonary artery not well visualized. Aorta * Normally sized aortic root. Pericardium * There is no pericardial effusion present. Device lead * A device lead was visualized in the right atrium and right ventricle. Interatrial Septum * No evidence of PFO by color Doppler. IVC * Normal IVC dimensions and inspiratory collapse. Consult Discharge Plan - Plan Referrals: Neeraj Heller, PAC [Primary Care Provider] - <Naveed MonahanAlli T - Last Filed: 03/24/18 15:45> Date of Encounter: 03/24/18 - Assessment and plan (1) Acute exacerbation of chronic obstructive airways disease Current Visit: Yes Status: Acute (2) Community acquired pneumonia Current Visit: Yes Status: Acute Qualifiers: Laterality: unspecified laterality Qualified Code(s): J18.9 - Pneumonia, unspecified organism (3) Hypoxia Current Visit: Yes Status: Acute (4) Acute exacerbation of CHF (congestive heart failure) Current Visit: Yes Status: Acute Qualifiers: Heart failure type: unspecified Qualified Code(s): I50.9 - Heart failure, unspecified (5) DVT prophylaxis Current Visit: Yes Status: Acute (6) Elevated troponin Current Visit: Yes Status: Acute (7) ANI (acute kidney injury) Current Visit: Yes Status: Acute (8) Arthritis Current Visit: Yes Status: Chronic (9) Anxiety and depression Current Visit: Yes Status: Chronic (10) Opiate addiction Current Visit: Yes Status: Chronic Qualifiers: Substance use status: with unspecified opioid-induced disorder Qualified Code(s): F11.29 - Opioid dependence with unspecified opioid-induced disorder (11) Morbid obesity with BMI of 60.0-69.9, adult Current Visit: Yes Status: Chronic - Time Spent With Patient Total time spent is greater than 50% in coordination of care (as documented) at patient's floor/unit and/or counseling patient: - Constitutional Vitals: Temp Pulse Resp BP Pulse Ox 97.8 F 91 16 146/90 95 03/24/18 07:23 03/24/18 07:23 03/24/18 11:36 03/24/18 07:23 03/24/18 11:36 Internal Medicine: Result - Labs CBC & Chem 7: 03/24/18 11:40 03/24/18 11:40 Labs: Short CBC 03/24/18 Range/Units 11:40 WBC 10.8 (4.3-11.1) K/mcL Hgb 14.2 (11.5-15.4) g/dL Hct 45.9 H (35.3-44.9) % Plt Count 194 (140-400) K/mcL Neutrophils # 9.5 H (1.6-8.9) K/mcL BMP 03/24/18 11:40 Sodium 141 Potassium 4.5 Chloride 100 Carbon Dioxide 35 H BUN 38 H Creatinine 0.98 Glucose 189 H Calcium 9.4 Liver Function 03/24/18 Range/Units 11:40 Total Bilirubin 0.5 (0.3-1.0) mg/dL AST 17 (13-39) Units/L ALT 23 (7-52) Units/L Alkaline Phosphatase 84 (34-104) Units/L Albumin 3.6 (3.5-5.7) g/dL - ABG Interpretation ABG results: PT/INR, D-dimer PT 13.5 Seconds (9.4-12.1) H 03/22/18 14:12 - Impressions Impressions Echocardiogram 03/23/18 17:10 Impressions: LVEF 60%. Mild left ventricular diastolic dysfunction. Normal right ventricular structure and function. Mild tricuspid regurgitation. Mild-moderate pulmonary hypertension. Left Ventricular Wall Motion: Rest Echo Findings All wall segments showed normal motion. Findings: Study Quality * Technically adequate exam. ECG Findings * Normal sinus rhythm. Left Ventricle * LVEF 60%. * Normal LV chamber size, wall thickness and function. * Mild left ventricular diastolic dysfunction. Right Ventricle * Normal right ventricular structure and function. Left Atrium * Normal left atrial size. Right Atrium * Normal right atrial size. Aortic Valve * No aortic regurgitation. * Aortic valve not well visualized. * No aortic stenosis. Mitral Valve * No mitral regurgitation. * Normal mitral valve structure. * No mitral stenosis. Tricuspid Valve * Normal tricuspid valve structure. * Mild tricuspid regurgitation. * Estimated RA pressure is 3 mmHg. * Estimated RVSP is 48 mmHg. * Mild-moderate pulmonary hypertension. Pulmonic Valve * Pulmonic valve is not well visualized. * No pulmonic stenosis. * No pulmonic regurgitation. Pulmonary Artery * Pulmonary artery not well visualized. Aorta * Normally sized aortic root. Pericardium * There is no pericardial effusion present. Device lead * A device lead was visualized in the right atrium and right ventricle. Interatrial Septum * No evidence of PFO by color Doppler. IVC * Normal IVC dimensions and inspiratory collapse. - Attending Attestation I examined this patient 03/24, and my medical decision-making was reviewed with the Resident Physician. I agree with the documented findings, disposition and treatment plan as described except to the extent set forth below. 58 F being managed for Morbid Obesity, Acute hypoxic resp failure secondary to multilobar R sided PNA, COPDE, CHFpEF exacerbation. No new complains, on exam she is morbidly obese and not in distress, CTAB, no pedal edema. Labs and Imaging noted, ECHO noted for mild-moderate Pulm HTN, mild LVDD, and normal EF. She is polycythemic. Plan is to change antibiotics to oral, change steroids to po from a.m., continue diuresis, monitor closely, wean O2 as tolerated, patient possibly had chronic hypoxia due to OHS (polycythemic), will need home O2 on discharge. Rest of details as in the resident physician's documentation
[2018-03-24] MEDS: Gabapentin 300 MG CAPSULE PO SCH ×3 (08:54→21:58)
[2018-03-24] MEDS: Aspirin Enteric Coated 81 MG Tablet PO SCH (08:54)
[2018-03-24] MEDS: Nicotine 14 MG PATCH.TD24 TD SCH (08:55)
[2018-03-24] MEDS: Levofloxacin 750 MG/150 ML 750 MG/150 ML BAG IVPB SCH (08:55)
[2018-03-24] MEDS: *HR* Heparin 5,000 UNIT/ML VIAL SQ SCH ×3 (08:55→23:57)
[2018-03-24] MEDS: Furosemide 40 MG/4 ML VIAL IVP SCH (08:55)
[2018-03-24] MEDS: methylPREDNISolone 125 MG/2 ML VIAL IVP SCH ×3 (08:55→23:57)
[2018-03-24] MEDS ORDERED: levoFLOXacin 500 MG TABLET PO SCH (09:00)
[2018-03-24] MEDS: levoFLOXacin 750 MG TABLET PO SCH (11:47)
[2018-03-24 11:56] LABS: Basophils % 0.3 %; Hematocrit 45.9 % (35.3-44.9); Hemoglobin 14.2 g/dL (11.5-15.4); Immature Granulocytes % 0.9 % (0-4); Lymphocytes # 0.7 K/mcL (0.6-4.6); Lymphocytes % 6.1 %; Mean Corpuscular HGB Conc 30.9 g/dL (31.6-35.5); Mean Corpuscular Hemoglobin 28.8 pg (28.0-33.3); Mean Corpuscular Volume 93.1 fL (83.0-100.0); Mean Platelet Volume 10.3 fL (9.4-12.4); Monocytes # 0.5 K/mcL (0.0-1.3); Monocytes % 4.3 %; Neutrophils # 9.5 K/mcL (1.6-8.9); Platelet Count 194 K/mcL (140-400); Red Blood Count 4.93 M/mcL (3.82-4.97); Red Cell Distribution Width 18.4 % (11.5-14.5); Segmented Neutrophils % 88.4 %
[2018-03-24 12:16] LABS: Alanine Aminotransferase 23 Units/L (7-52); Alkaline Phosphatase 84 Units/L (34-104); Aspartate Amino Transferase 17 Units/L (13-39); BUN/Creatinine Ratio 39 (6-26); Bilirubin,Total 0.5 mg/dL (0.3-1.0); Blood Urea Nitrogen 38 mg/dL (6-20); Calcium 9.4 mg/dL (8.6-10.3); Carbon Dioxide 35 mEq/L (23-29); Chloride 100 mEq/L (98-107); Glucose 189 mg/dL (70-105); Osmolality,Calculated 306 (280-300); Potassium 4.5 mEq/L (3.5-5.1); Sodium 141 mEq/L (136-145); Total Protein 6.9 g/dL (6.4-8.9); eGFR For African Americans > 60 (> 60); eGFR For Non-African Americans 58 (> 60)
[2018-03-24 12:48] LABS: Albumin 3.6 g/dL (3.5-5.7); Albumin/Globulin Ratio 1.1 (1.1-2.2); Globulin 3.3 g/dL (2.4-3.5)
[2018-03-25] MEDS: Ipratropium/Albuterol Neb 3 ML IH SCH ×6 (03:38→23:44)
[2018-03-25 05:21] LABS: Basophils % 0.4 %; Eosinophils % 0.1 %; Hematocrit 46.8 % (35.3-44.9); Hemoglobin 14.8 g/dL (11.5-15.4); Immature Granulocytes % 1.3 % (0-4); Lymphocytes # 0.7 K/mcL (0.6-4.6); Lymphocytes % 5.9 %; Mean Corpuscular HGB Conc 31.6 g/dL (31.6-35.5); Mean Corpuscular Volume 91.8 fL (83.0-100.0); Monocytes # 0.4 K/mcL (0.0-1.3); Monocytes % 3.5 %; Neutrophils # 9.7 K/mcL (1.6-8.9); Platelet Count 199 K/mcL (140-400); Red Cell Distribution Width 17.7 % (11.5-14.5); Segmented Neutrophils % 88.8 %
[2018-03-25 05:33] LABS: Alanine Aminotransferase 20 Units/L (7-52); Albumin 3.4 g/dL (3.5-5.7); Alkaline Phosphatase 78 Units/L (34-104); Aspartate Amino Transferase 16 Units/L (13-39); BUN/Creatinine Ratio 36 (6-26); Bilirubin,Total 0.5 mg/dL (0.3-1.0); Blood Urea Nitrogen 32 mg/dL (6-20); Calcium 9.4 mg/dL (8.6-10.3); Carbon Dioxide 36 mEq/L (23-29); Chloride 99 mEq/L (98-107); Globulin 3.4 g/dL (2.4-3.5); Glucose 274 mg/dL (70-105); Osmolality,Calculated 307 (280-300); Potassium 4.9 mEq/L (3.5-5.1); Sodium 140 mEq/L (136-145); Total Protein 6.8 g/dL (6.4-8.9); eGFR For African Americans > 60 (> 60); eGFR For Non-African Americans > 60 (> 60)
--- NOTE | 2018-03-25 10:46 | Internal Med Progress Note ---
<Paul Mcfarlane - Last Filed: 03/25/18 11:05> Date of Encounter: 03/25/18 Time of Encounter: 10:43 - Assessment and plan (1) Community acquired pneumonia Current Visit: Yes Status: Acute Assessment and plan: CT chest revealed right multi-lobular pneumonia. Patient treated for COPDE in January. Received Zosyn and Vanco at ED during this admission. RIP + for enterovirus/rhinovirus. Continue contact precautions. Continue with Levaquin 750 PO day #3. Patient on 3L Oxygen NC. Continue BIPAP at night as needed and supplemental O2 with titration when not on BIPAP Continue DuoNebs Q4HR scheduled Stop Solu-Medrol 60 mg Q8HR. Switch to prednisone 60mg PO daily. Monitor respiratory status, f/u labs closely. Will need Bipap qualification study prior to discharge. Likely discharge with home oxygen. Qualifiers: Laterality: unspecified laterality Qualified Code(s): J18.9 - Pneumonia, unspecified organism (2) Acute respiratory failure with hypoxia Current Visit: Yes Status: Acute Assessment and plan: Patient likely has hypoxia secondary to FIDELIA vs obesity hypoventilation syndrome , worsened by COPD and CHF exacerbation. Continue BIPAP as needed and Supplemental O2 w/titration and SpO2 monitoring when not on BiPAP. (3) Acute exacerbation of chronic obstructive airways disease Current Visit: Yes Status: Acute Assessment and plan: Continue bronchodilators, steroids, and antibiotics (4) Acute exacerbation of CHF (congestive heart failure) Current Visit: Yes Status: Acute Assessment and plan: New onset of CHF exacerbation. Echocardiogram revealed mild-moderate Pulm HTN, mild LVDD, and normal EF. BNP 247 on admission. Continue 1.5L daily fluid restriction. Continue 40 mg IVP lasix BID. Continuous cardiac telemetry d/t tachycardia. Monitor I&O and daily weight. Qualifiers: Heart failure type: unspecified Qualified Code(s): I50.9 - Heart failure, unspecified (5) Elevated troponin Current Visit: Yes Status: Acute Assessment and plan: Adynamic elevated troponin on admission. Most likely demand ischemia d/t current COPD and CHF exacerbations w/hypoxia. Pt. denies CP or cardiac sx, and previous cardiac w/u. Echo performed. Pt. given 324 mg aspirin in ED. Nitro SL PRN ordered. Continuous cardiac telemetry. (6) ANI (acute kidney injury) Current Visit: Yes Status: Acute Assessment and plan: ANI resolved Will use IV fluids judiciously, d/t CHF exacerbation. 1.5L daily fluid restriction. Monitor I&O and daily weight. (7) Arthritis Current Visit: Yes Status: Chronic Assessment and plan: Hx of chronic arthritis. Tylenol 650 mg Q6HR PRN for mild pain. Continue Neurontin. (8) Anxiety and depression Current Visit: Yes Status: Chronic Assessment and plan: Hx of chronic anxiety and bipolar depression. Well-controlled. Continue Neurontin. (9) Opiate addiction Current Visit: Yes Status: Chronic Assessment and plan: Hx of chronic addiction to opioids. Continue Suboxone. Qualifiers: Substance use status: with unspecified opioid-induced disorder Qualified Code(s): F11.29 - Opioid dependence with unspecified opioid-induced disorder (10) Morbid obesity with BMI of 60.0-69.9, adult Current Visit: Yes Status: Chronic Assessment and plan: Diet modification and exercise (11) DVT prophylaxis Current Visit: Yes Status: Acute Assessment and plan: Heparin 5,000 units SQ Q8 for DVT prophylaxis. Monitor pt. for signs of bleeding. (12) Polycythemia secondary to hypoxia Current Visit: Yes Status: Acute Assessment and plan: Outpatient monitoring - Time Spent With Patient Total time spent is greater than 50% in coordination of care (as documented) at patient's floor/unit and/or counseling patient: - Subjective Interval history: Patient seen and examined sitting comfortably in bed. Patient denies any new c/ o this AM and reports some improvement after breathing treatment. She will need Bipap qualification study prior to discharge. Family is at bedside. - Constitutional Vitals: Temp Pulse Resp BP Pulse Ox 96.3 F L 81 19 165/89 97 03/25/18 07:06 03/25/18 07:06 03/25/18 07:43 03/25/18 07:06 03/25/18 07:43 General appearance: Present: cooperative, A&O X 3, morbidly obese, pleasant, no acute distress, answers questions appropriately. Absent: severe distress - Head Head exam: Present: atraumatic, normocephalic - Eye Eye exam: Present: PERRL, conjuntiva pink, sclera anicteric Pupils: Present: PERRL - ENT ENT exam: Present: mucous membranes moist, normal oropharynx - Neck Neck exam general surgery: Present: supple, trachea midline. Absent: lymphadenopathy - Respiratory Respiratory exam: Present: wheezes. Absent: accessory muscle use, CTAB (3L O2 via NC), rales, rhonchi - Cardiovascular Cardiovascular exam: Present: RRR, +S1, +S2. Absent: diastolic murmur, gallop, rubs, systolic murmur - GI/Abdominal GI/Abdominal exam: Present: normal bowel sounds, soft, no peritoneal signs. Absent: distended, tenderness - Extremities Exam Extremities exam: Present: pedal edema (1+), warm, radial pulses palpable and symmetrical. Absent: calf tenderness, cyanotic - Back Exam Back exam: Present: normal inspection. Absent: tenderness - Neurological Exam Neurological exam: Present: CN II-XII intact, oriented X3, no focal deficits. Absent: pronater drift, facial droop, speech deficit - Psychiatric Psychiatric exam: Present: normal affect, normal mood - Skin Skin exam: Present: dry, intact, normal color, warm Internal Medicine: Result - Labs CBC & Chem 7: 03/25/18 05:05 03/25/18 05:05 Labs: Short CBC 03/24/18 03/25/18 Range/Units 11:40 05:05 WBC 10.8 10.9 (4.3-11.1) K/mcL Hgb 14.2 14.8 (11.5-15.4) g/dL Hct 45.9 H 46.8 H (35.3-44.9) % Plt Count 194 199 (140-400) K/mcL Neutrophils # 9.5 H 9.7 H (1.6-8.9) K/mcL BMP 03/24/18 03/25/18 11:40 05:05 Sodium 141 140 Potassium 4.5 4.9 Chloride 100 99 Carbon Dioxide 35 H 36 H BUN 38 H 32 H Creatinine 0.98 0.88 Glucose 189 H 274 H Calcium 9.4 9.4 Liver Function 03/24/18 03/25/18 Range/Units 11:40 05:05 Total Bilirubin 0.5 0.5 (0.3-1.0) mg/dL AST 17 16 (13-39) Units/L ALT 23 20 (7-52) Units/L Alkaline Phosphatase 84 78 (34-104) Units/L Albumin 3.6 3.4 L (3.5-5.7) g/dL - ABG Interpretation ABG results: PT/INR, D-dimer PT 13.5 Seconds (9.4-12.1) H 03/22/18 14:12 Consult Discharge Plan - Plan Referrals: Neeraj Heller, PAC [Primary Care Provider] - <Alli Monahan - Last Filed: 03/25/18 15:14> Date of Encounter: 03/25/18 - Assessment and plan (1) Acute exacerbation of chronic obstructive airways disease Current Visit: Yes Status: Acute (2) Community acquired pneumonia Current Visit: Yes Status: Acute Qualifiers: Laterality: unspecified laterality Qualified Code(s): J18.9 - Pneumonia, unspecified organism (3) Acute exacerbation of CHF (congestive heart failure) Current Visit: Yes Status: Acute Qualifiers: Heart failure type: unspecified Qualified Code(s): I50.9 - Heart failure, unspecified (4) DVT prophylaxis Current Visit: Yes Status: Acute (5) Elevated troponin Current Visit: Yes Status: Acute (6) ANI (acute kidney injury) Current Visit: Yes Status: Acute (7) Arthritis Current Visit: Yes Status: Chronic (8) Anxiety and depression Current Visit: Yes Status: Chronic (9) Opiate addiction Current Visit: Yes Status: Chronic Qualifiers: Substance use status: with unspecified opioid-induced disorder Qualified Code(s): F11.29 - Opioid dependence with unspecified opioid-induced disorder (10) Morbid obesity with BMI of 60.0-69.9, adult Current Visit: Yes Status: Chronic (11) Acute respiratory failure with hypoxia Current Visit: Yes Status: Acute (12) Polycythemia secondary to hypoxia Current Visit: Yes Status: Acute - Time Spent With Patient Total time spent is greater than 50% in coordination of care (as documented) at patient's floor/unit and/or counseling patient: - Constitutional Vitals: Temp Pulse Resp BP Pulse Ox 98.6 F 91 14 157/89 91 03/25/18 11:38 03/25/18 11:38 03/25/18 11:38 03/25/18 11:38 03/25/18 11:38 Internal Medicine: Result - Labs CBC & Chem 7: 03/25/18 05:05 03/25/18 05:05 Labs: Short CBC 03/25/18 Range/Units 05:05 WBC 10.9 (4.3-11.1) K/mcL Hgb 14.8 (11.5-15.4) g/dL Hct 46.8 H (35.3-44.9) % Plt Count 199 (140-400) K/mcL Neutrophils # 9.7 H (1.6-8.9) K/mcL BMP 03/25/18 05:05 Sodium 140 Potassium 4.9 Chloride 99 Carbon Dioxide 36 H BUN 32 H Creatinine 0.88 Glucose 274 H Calcium 9.4 Liver Function 03/25/18 Range/Units 05:05 Total Bilirubin 0.5 (0.3-1.0) mg/dL AST 16 (13-39) Units/L ALT 20 (7-52) Units/L Alkaline Phosphatase 78 (34-104) Units/L Albumin 3.4 L (3.5-5.7) g/dL - ABG Interpretation ABG results: PT/INR, D-dimer PT 13.5 Seconds (9.4-12.1) H 03/22/18 14:12 - Attending Attestation I examined this patient 03/24, and my medical decision-making was reviewed with the Resident Physician. I agree with the documented findings, disposition and treatment plan as described except to the extent set forth below. 58 F being managed for Morbid Obesity, Acute hypoxic resp failure secondary to multilobar R sided PNA, COPDE, CHFpEF exacerbation. No new complains, on exam she is morbidly obese and not in distress, CTAB, no pedal edema. Labs and Imaging noted, ECHO noted for mild-moderate Pulm HTN, mild LVDD, and normal EF. She is polycythemic. Plan is to obtain ABG, qualify for BIPAP, continue current care, anticipate discharge home a.m Rest of details as in the resident physician's documentation
[2018-03-25] MEDS: Aspirin Enteric Coated 81 MG Tablet PO SCH (11:18)
[2018-03-25] MEDS: levoFLOXacin 750 MG TABLET PO SCH (11:18)
[2018-03-25] MEDS: Furosemide 40 MG/4 ML VIAL IVP SCH (11:19)
[2018-03-25] MEDS: Nicotine 14 MG PATCH.TD24 TD SCH (11:19)
[2018-03-25] MEDS: *HR* Heparin 5,000 UNIT/ML VIAL SQ SCH ×3 (11:19→23:00)
[2018-03-25] MEDS: Gabapentin 300 MG CAPSULE PO SCH ×3 (12:46→22:43)
[2018-03-25] MEDS: predniSONE 20 MG TABLET PO SCH (12:46)
[2018-03-25] MEDS ORDERED: Saline Nasal Spray 44 ML BOTTLE NS PRN (13:39)
[2018-03-25 16:15] LABS: ABG Base Excess 11 mEq/L (-2 to 3); ABG HCO3 39 mEq/L (21-27); ABG Oxygen Saturation 90 % (95-98); ABG PCO2 59 mmHg (35-45); ABG PH 7.43 pH Units (7.32-7.45); ABG PO2 60 mmHg (85-104); ABG TCO2 41 mEq/L (20-26)
[2018-03-26 03:52] LABS: Basophils % 0.4 %; Hemoglobin 15.1 g/dL (11.5-15.4); Immature Granulocytes % 2.2 % (0-4); Lymphocytes # 0.7 K/mcL (0.6-4.6); Lymphocytes % 6.4 %; Mean Corpuscular HGB Conc 31.5 g/dL (31.6-35.5); Mean Corpuscular Hemoglobin 28.9 pg (28.0-33.3); Mean Corpuscular Volume 91.8 fL (83.0-100.0); Mean Platelet Volume 10.3 fL (9.4-12.4); Monocytes # 0.6 K/mcL (0.0-1.3); Monocytes % 5.4 %; Neutrophils # 9.1 K/mcL (1.6-8.9); Platelet Count 197 K/mcL (140-400); Red Blood Count 5.23 M/mcL (3.82-4.97); Red Cell Distribution Width 17.5 % (11.5-14.5); Segmented Neutrophils % 85.6 %
[2018-03-26 04:06] LABS: Alanine Aminotransferase 19 Units/L (7-52); Albumin 3.3 g/dL (3.5-5.7); Alkaline Phosphatase 74 Units/L (34-104); Aspartate Amino Transferase 17 Units/L (13-39); BUN/Creatinine Ratio 33 (6-26); Bilirubin,Total 0.5 mg/dL (0.3-1.0); Blood Urea Nitrogen 29 mg/dL (6-20); Calcium 9.2 mg/dL (8.6-10.3); Carbon Dioxide 36 mEq/L (23-29); Chloride 97 mEq/L (98-107); Globulin 3.4 g/dL (2.4-3.5); Glucose 242 mg/dL (70-105); Osmolality,Calculated 302 (280-300); Potassium 4.7 mEq/L (3.5-5.1); Sodium 139 mEq/L (136-145); Total Protein 6.7 g/dL (6.4-8.9); eGFR For African Americans > 60 (> 60); eGFR For Non-African Americans > 60 (> 60)
[2018-03-26] MEDS: Ipratropium/Albuterol Neb 3 ML IH SCH ×3 (04:35→11:34)
[2018-03-26 07:22] VITALS: BP 140/72
[2018-03-26] MEDS: *HR* Heparin 5,000 UNIT/ML VIAL SQ SCH (08:39)
[2018-03-26] MEDS: predniSONE 20 MG TABLET PO SCH (08:39)
[2018-03-26] MEDS: Aspirin Enteric Coated 81 MG Tablet PO SCH (08:39)
[2018-03-26] MEDS: Furosemide 40 MG/4 ML VIAL IVP SCH (08:39)
[2018-03-26] MEDS: Nicotine 14 MG PATCH.TD24 TD SCH (08:39)
[2018-03-26] MEDS: levoFLOXacin 750 MG TABLET PO SCH (08:39)
[2018-03-26] MEDS: Gabapentin 300 MG CAPSULE PO SCH ×2 (08:39→14:51)
--- NOTE | 2018-03-26 09:25 | Discharge Summary ---
<Alli Monahan T - Last Filed: 03/26/18 15:24> Date of Encounter: 03/26/18 - Discharge Diagnosis (1) Acute exacerbation of chronic obstructive airways disease Status: Acute (2) Community acquired pneumonia Status: Acute Qualifiers: Laterality: unspecified laterality Qualified Code(s): J18.9 - Pneumonia, unspecified organism (3) Acute exacerbation of CHF (congestive heart failure) Status: Acute Qualifiers: Heart failure type: diastolic Qualified Code(s): I50.33 - Acute on chronic diastolic (congestive) heart failure (4) DVT prophylaxis Status: Acute (5) Elevated troponin Status: Acute (6) ANI (acute kidney injury) Status: Acute (7) Arthritis Status: Chronic (8) Anxiety and depression Status: Chronic (9) Opiate addiction Status: Chronic Qualifiers: Substance use status: with unspecified opioid-induced disorder Qualified Code(s): F11.29 - Opioid dependence with unspecified opioid-induced disorder (10) Morbid obesity with BMI of 60.0-69.9, adult Status: Chronic (11) Acute respiratory failure with hypoxia Status: Acute (12) Polycythemia secondary to hypoxia Status: Acute Hospital course: Ms. Dooley is a 58 year old female Time spent discussing smoking cessation with patient: 3 to 10 minutes - Time Spent with Patient Total time spent providing and/or coordinating discharge services: Greater than 30 minutes - Discharge Medications Prescriptions: Carvedilol [Coreg] 6.25 mg PO BIDWM 14 Days #28 tablet levoFLOXacin [Levaquin] 750 mg PO DAILY 6 Days #6 tablet Lisinopril [Zestril] 5 mg PO DAILY #30 tablet predniSONE [PredniSONE] 40 mg PO DAILY 3 Days #3 tablet Home Medications: Buprenorphine HCl/Naloxone HCl [Suboxone 8 mg-2 mg Sl Film] 1.75 each SL DAILY 03/22/18 [History] Gabapentin [Neurontin] 600 mg PO TID 03/22/18 [History] Carvedilol [Coreg] 6.25 mg PO BIDWM 14 Days #28 tablet 03/26/18 [Rx] Lisinopril [Zestril] 5 mg PO DAILY #30 tablet 03/26/18 [Rx] levoFLOXacin [Levaquin] 750 mg PO DAILY 6 Days #6 tablet 03/26/18 [Rx] predniSONE [PredniSONE] 40 mg PO DAILY 3 Days #3 tablet 03/26/18 [Rx] Allergies/Adverse Reactions: 3 Allergy/AdvReac Type Severity Reaction Status Date / Time Iodinated Contrast- Oral and Allergy Rash Verified 03/22/18 15:34 IV Dye Date of admission: 03/22/18 18:15 Primary care physician: Neeraj Heller Consults: 03/23/18 11:35 Consult to Invasive Line Access Team [CONS] Routine Reason for Consult: limited vascular access Line Type: EPIV - Constitutional Vitals: Temp Pulse Resp BP Pulse Ox 97.6 F 81 18 140/72 90 03/26/18 07:18 03/26/18 07:18 03/26/18 11:34 03/26/18 07:18 03/26/18 11:34 - Patient Status Disposition: Home, Self-Care Condition: Good - Discharge Instructions Instructions: Prednisone (By mouth), Levofloxacin (By mouth), Heart Failure (DC ), Acute Respiratory Distress Syndrome (DC), Using Oxygen at Home (DC), Chronic Obstructive Pulmonary Disease (DC), Sepsis (DC) Follow Up With: Neeraj Heller, PAC [Primary Care Provider] - 04/01/18 3:20 pm Forms: ED Satisfaction Letter - Attending Attestation I examined this patient 03/26, and my medical decision-making was reviewed with the Resident Physician. I agree with the documented findings, disposition and treatment plan as described except to the extent set forth below. 58 F being managed for Morbid Obesity, Acute hypoxic resp failure secondary to multilobar R sided PNA, COPDE, CHFpEF exacerbation. No new complains, on exam she is morbidly obese and not in distress, CTAB, no pedal edema. Labs and Imaging noted, ECHO noted for mild-moderate Pulm HTN, mild LVDD, and normal EF. She is polycythemic. She qualified for BIPAP overnight, ABG noted for compensated hypercapnea Patient is stable to be discharged home on antibiotics, steroids, BIPAP, Lasix and BB. Follow up with PCP Rest of details as in the resident physician's documentation <Santos Luna - Last Filed: 03/26/18 16:40> Date of Encounter: 03/26/18 Time of Encounter: 09:00 - Discharge Diagnosis (1) Acute exacerbation of chronic obstructive airways disease Priority: Primary Status: Acute (2) Community acquired pneumonia Priority: Primary Status: Acute Qualifiers: Laterality: unspecified laterality Qualified Code(s): J18.9 - Pneumonia, unspecified organism (3) Acute exacerbation of CHF (congestive heart failure) Priority: Primary Status: Acute Qualifiers: Heart failure type: diastolic Qualified Code(s): I50.33 - Acute on chronic diastolic (congestive) heart failure (4) Elevated troponin Priority: Secondary Status: Acute (5) ANI (acute kidney injury) Priority: Secondary Status: Acute (6) Arthritis Priority: Secondary Status: Chronic (7) Anxiety and depression Priority: Secondary Status: Chronic (8) Opiate addiction Priority: Secondary Status: Chronic Qualifiers: Substance use status: with unspecified opioid-induced disorder Qualified Code(s): F11.29 - Opioid dependence with unspecified opioid-induced disorder (9) Morbid obesity with BMI of 60.0-69.9, adult Priority: Secondary Status: Chronic (10) Acute respiratory failure with hypoxia Priority: Secondary Status: Acute (11) Polycythemia secondary to hypoxia Priority: Secondary Status: Acute Hospital course: Ms. Dooley is a 58 year old female w/PMH of arthritis and COPD presents to ED with worsening SOB for the last month. Admitted for COPDE, CHFE, multilobar PNA. Patient improved with BIPAP, duoneb, antibiotics. She was eventually weaned off to 4L Oxygen via NC. Today, she continues to return to baseline. She is to be discharged with Levoquin 750mg PO daily #4/7, prednisone 40mg daily for 3 more days, lisinopril, and carvedilol. Patient also qualified for 4L home oxygen and BIPAP. Time spent discussing smoking cessation with patient: 3 to 10 minutes - Time Spent with Patient Total time spent providing and/or coordinating discharge services: Greater than 30 minutes Date of admission: 03/22/18 18:15 Primary care physician: Neeraj Heller Consults: 03/23/18 11:35 Consult to Invasive Line Access Team [CONS] Routine Reason for Consult: limited vascular access Line Type: EPIV - Constitutional Vitals: Temp Pulse Resp BP Pulse Ox 97.6 F 81 18 140/72 90 03/26/18 07:18 03/26/18 07:18 03/26/18 07:43 03/26/18 07:18 03/26/18 07:43 General appearance: Present: cooperative, A&O X 3, morbidly obese, pleasant, no acute distress, answers questions appropriately. Absent: severe distress - Head Head exam: Present: atraumatic, normocephalic - Eye Eye exam: Present: PERRL, conjuntiva pink, sclera anicteric Pupils: Present: PERRL - Neck Neck exam general surgery: Present: supple, trachea midline. Absent: lymphadenopathy - Respiratory Respiratory exam: Present: rales, wheezes. Absent: accessory muscle use, rhonchi - Cardiovascular Cardiovascular exam: Present: RRR, +S1, +S2. Absent: diastolic murmur, gallop, rubs, systolic murmur - GI/Abdominal GI/Abdominal exam: Present: normal bowel sounds, soft, no peritoneal signs. Absent: distended, tenderness - Extremities Exam Extremities exam: Present: warm, radial pulses palpable and symmetrical. Absent : calf tenderness, cyanotic, pedal edema - Neurological Exam Neurological exam: Present: CN II-XII intact, oriented X3, no focal deficits. Absent: pronater drift, facial droop, speech deficit - Skin Skin exam: Present: dry, intact - Patient Status Functional capacity at discharge: independent ambulation Overall status at discharge: patient is progressing back to baseline - Diet and Activity Activity: increase activity as tolerated, resume usual activities as tolerated Diet: advance to your usual diet
== END 2018-03-26 15:17 | disposition home or self-care (01) | DRG 871 ==
LOC: EMEROO 13:34 → 2NENU 13:34 → SUATTDRO 18:15
PROVIDERS: ADMIT Hospitalist; ATTEND Internal Medicine

== ENCOUNTER 2021-12-28 22:53 | Observation (INO) ==
[2021-12-29 00:10] LABS: Influenza A PCR Negative (Negative); Influenza B PCR Negative (Negative); Resp. Syncytial Virus PCR Negative (Negative)
[2021-12-29 00:13] LABS: SARS-CoV-2 by PCR (In House) Negative (Negative)
[2021-12-29] MEDS ORDERED: Aspirin 325 MG TABLET PO ONE (00:50)
[2021-12-29] MEDS ORDERED: Ipratropium/Albuterol Neb 3 ML IH ONE ×2 (00:50→04:13)
[2021-12-29] MEDS ORDERED: *HR* FentaNYL (PF) 100 MCG/2 ML VIAL IVP ONE (00:55)
[2021-12-29 01:06] LABS: Basophils % 0.2 %; Eosinophils % 1.4 %; Mean Corpuscular HGB Conc 33.3 g/dL (31.6-35.5)
[2021-12-29 01:08] LABS: Eosinophils # 0.1 K/mcL (0.0-0.6); Hematocrit 53.4 % (35.3-44.9); Hemoglobin 17.8 g/dL (11.5-15.4); Immature Granulocytes % 0.2 % (0-4); Immature Platelets 2.6 % (1.1-6.1); Lymphocytes # 1.3 K/mcL (0.6-4.6); Lymphocytes % 14.8 %; Mean Corpuscular Hemoglobin 31.9 pg (28.0-33.3); Mean Corpuscular Volume 95.7 fL (83.0-100.0); Mean Platelet Volume 10.8 fL (9.4-12.4); Monocytes # 0.7 K/mcL (0.0-1.3); Monocytes % 7.7 %; Neutrophils # 6.6 K/mcL (1.6-8.9); Platelet Count 126 K/mcL (140-400); Red Blood Count 5.58 M/mcL (3.82-4.97); Red Cell Distribution Width 16.3 % (11.5-14.5); Segmented Neutrophils % 75.7 %; White Blood Count 8.7 K/mcL (4.3-11.1)
[2021-12-29 01:26] LABS: Platelet Estimate Slight Decrease (Normal)
[2021-12-29] MEDS ORDERED: methylPREDNISolone 125 MG/2 ML VIAL IVP ONE (02:13)
[2021-12-29] MEDS ORDERED: *HR* HYDROmorphone 2 MG/ML SYRINGE IVP ONE ×2 (02:27→06:53)
[2021-12-29] MEDS ORDERED: *HR* Promethazine 25 MG/ML VIAL IM ONE (02:27)
[2021-12-29 02:31] LABS: BUN/Creatinine Ratio 16 (6-26); Blood Urea Nitrogen 12 mg/dL (8-23); Calcium 8.9 mg/dL (8.6-10.3); Carbon Dioxide 27 mEq/L (23-29); Chloride 108 mEq/L (98-107); Glucose 88 mg/dL (70-105); Osmolality,Calculated 293 (280-300); Potassium 3.6 mEq/L (3.5-5.1); Sodium 142 mEq/L (136-145); eGFR For African Americans > 60 (> 60); eGFR For Non-African Americans > 60 (> 60)
[2021-12-29 02:32] LABS: Troponin I < 0.03 ng/mL (< 0.04)
[2021-12-29] MEDS ORDERED: Isovue-370 500 ML BOTTLE IVP ONE (02:43)
[2021-12-29] MEDS ORDERED: Acetaminophen 325 MG TABLET PO PRN (05:44)
[2021-12-29] MEDS ORDERED: Naloxone 0.4 MG/ML INJ IVP PRN (05:44)
[2021-12-29] MEDS ORDERED: Albuterol 2.5 MG/3 ML NEBULIZER IH PRN (05:45)
[2021-12-29] MEDS ORDERED: Nitroglycerin 0.4 MG TAB.SUBL SL PRN (05:48)
[2021-12-29] MEDS: Azithromycin 500 MG in 0.9 % Sodium Chloride 250 ML IVPB SCH (06:36)
[2021-12-29] MEDS: *HR* Heparin 5,000 UNIT/ML VIAL SQ SCH ×2 (06:40→15:22)
[2021-12-29] MEDS ORDERED: Regadenoson 0.4 MG/5 ML SYRINGE IVP ONE (07:17)
[2021-12-29] MEDS: Ipratropium/Albuterol Neb 3 ML IH SCH ×3 (07:52→19:40)
[2021-12-29] MEDS: *HR* Buprenorphine HCl 8 MG TAB.SUBL SL SCH (15:21)
[2021-12-29] MEDS: Gabapentin 400 MG CAPSULE PO SCH ×3 (15:21→22:05)
[2021-12-30] MEDS: Ipratropium/Albuterol Neb 3 ML IH SCH ×3 (04:18→15:52)
[2021-12-30] MEDS: Azithromycin 500 MG in 0.9 % Sodium Chloride 250 ML IVPB SCH (06:07)
[2021-12-30] MEDS: *HR* Heparin 5,000 UNIT/ML VIAL SQ SCH (06:07)
[2021-12-30 07:01] VITALS: BP 99/67; PULSE 74; TEMP 97.8
[2021-12-30] MEDS ORDERED: predniSONE 20 MG TABLET PO SCH (09:00)
[2021-12-30] MEDS: Gabapentin 400 MG CAPSULE PO SCH (10:17)
[2021-12-30] MEDS: *HR* Buprenorphine HCl 8 MG TAB.SUBL SL SCH (10:18)
[2021-12-30 15:54] VITALS: O2SAT 93
== END 2021-12-30 17:46 | disposition home or self-care (01) ==
LOC: 4WAOSI 22:53 → EMEROOARM 22:53 → SUATTDRO 12-29 05:19 → 4WAOSI 12-29 06:44
PROVIDERS: ADMIT Internal Medicine; ATTEND Family Medicine

== ENCOUNTER 2022-01-06 12:08 | Observation (INO) ==
[2022-01-06 13:40] LABS: Basophils % 0.3 %; Eosinophils # 0.3 K/mcL (0.0-0.6); Eosinophils % 2.6 %; Hematocrit 52.5 % (35.3-44.9); Hemoglobin 16.3 g/dL (11.5-15.4); Immature Granulocytes % 0.7 % (0-4); Lymphocytes # 1.8 K/mcL (0.6-4.6); Lymphocytes % 18.1 %; Mean Corpuscular Hemoglobin 31.4 pg (28.0-33.3); Mean Corpuscular Volume 101.2 fL (83.0-100.0); Mean Platelet Volume 9.1 fL (9.4-12.4); Monocytes # 0.7 K/mcL (0.0-1.3); Monocytes % 6.7 %; Neutrophils # 6.9 K/mcL (1.6-8.9); Platelet Count 102 K/mcL (140-400); Red Blood Count 5.19 M/mcL (3.82-4.97); Segmented Neutrophils % 71.6 %; White Blood Count 9.7 K/mcL (4.3-11.1)
[2022-01-06 13:52] LABS: Prothrombin Time 10.8 Seconds (9.4-12.1)
[2022-01-06 13:55] LABS: Activated Partial Thrombo Time 30.1 Seconds (26.0-36.0); Alanine Aminotransferase 19 Units/L (7-52); Albumin 3.6 g/dL (3.5-5.7); Albumin/Globulin Ratio 1.6 (1.1-2.2); Alkaline Phosphatase 56 Units/L (34-104); Aspartate Amino Transferase 16 Units/L (13-39); BUN/Creatinine Ratio 20 (6-26); Bilirubin,Direct 0.2 mg/dL (0.0-0.2); Bilirubin,Indirect 0.8 mg/dL (0.0-1.0); Blood Urea Nitrogen 17 mg/dL (8-23); Calcium 8.6 mg/dL (8.6-10.3); Carbon Dioxide 33 mEq/L (23-29); Chloride 103 mEq/L (98-107); Globulin 2.3 g/dL (2.4-3.5); Glucose 91 mg/dL (70-105); Lipase 7 Units/L (11-82); Osmolality,Calculated 293 (280-300); Potassium 4.7 mEq/L (3.5-5.1); Sodium 141 mEq/L (136-145); Total Protein 5.9 g/dL (6.4-8.9); eGFR For African Americans > 60 (> 60); eGFR For Non-African Americans > 60 (> 60)
[2022-01-06 13:56] LABS: Troponin I < 0.03 ng/mL (< 0.04)
[2022-01-06] MEDS: Nitroglycerin 0.4 MG TAB.SUBL SL PRN ×3 (14:58→15:09)
[2022-01-06] MEDS ORDERED: Furosemide 40 MG/4 ML VIAL IVP ONE (15:23)
[2022-01-06] MEDS ORDERED: Ipratropium/Albuterol Neb 3 ML IH ONE (15:47)
[2022-01-06] MEDS ORDERED: Morphine Sulfate 2 MG/ML SYRINGE IVP ONE (16:24)
[2022-01-06] MEDS ORDERED: Ondansetron 4 MG/2 ML VIAL IVP PRN (17:21)
[2022-01-06] MEDS ORDERED: Naloxone 0.4 MG/ML INJ IVP PRN (17:21)
[2022-01-06] MEDS ORDERED: Acetaminophen 325 MG TABLET PO PRN (17:21)
[2022-01-06] MEDS ORDERED: Perflutren Lipid Microsphere 1.3 ML in 0.9 % Sodium Chloride 8.7 ML IVP PRN (17:30)
[2022-01-06] MEDS ORDERED: Azithromycin 500 MG in D5% in Water 250 ML IVPB SCH ×2 (18:00→22:00)
[2022-01-06] MEDS: Gabapentin 300 MG CAPSULE PO SCH (21:36)
[2022-01-06] MEDS: *HR* Heparin 5,000 UNIT/ML VIAL SQ SCH (21:36)
[2022-01-06] MEDS: Ipratropium/Albuterol Neb 3 ML IH SCH (23:12)
[2022-01-06] MEDS: Budesonide/Formoterol 160/4.5 1 PUFF INH IH SCH (23:13)
[2022-01-07] MEDS: methylPREDNISolone 125 MG/2 ML VIAL IVP SCH ×2 (00:06→09:22)
[2022-01-07 01:39] LABS: Basophils % 0.2 %; Eosinophils # 0.3 K/mcL (0.0-0.6); Eosinophils % 2.8 %; Hematocrit 51.6 % (35.3-44.9); Hemoglobin 16.5 g/dL (11.5-15.4); Immature Granulocytes % 0.2 % (0-4); Lymphocytes # 1.3 K/mcL (0.6-4.6); Lymphocytes % 14.6 %; Mean Corpuscular Hemoglobin 31.9 pg (28.0-33.3); Mean Corpuscular Volume 99.6 fL (83.0-100.0); Mean Platelet Volume 10.1 fL (9.4-12.4); Monocytes # 0.5 K/mcL (0.0-1.3); Monocytes % 5.6 %; Neutrophils # 6.9 K/mcL (1.6-8.9); Platelet Count 112 K/mcL (140-400); Red Blood Count 5.18 M/mcL (3.82-4.97); Red Cell Distribution Width 16.6 % (11.5-14.5); Segmented Neutrophils % 76.6 %; White Blood Count 9.1 K/mcL (4.3-11.1)
[2022-01-07 02:16] LABS: BUN/Creatinine Ratio 21 (6-26); Blood Urea Nitrogen 18 mg/dL (8-23); Calcium 8.8 mg/dL (8.6-10.3); Carbon Dioxide 30 mEq/L (23-29); Chloride 99 mEq/L (98-107); Glucose 96 mg/dL (70-105); Osmolality,Calculated 292 (280-300); Potassium 4.3 mEq/L (3.5-5.1); Sodium 140 mEq/L (136-145); Troponin I < 0.03 ng/mL (< 0.04); eGFR For African Americans > 60 (> 60); eGFR For Non-African Americans > 60 (> 60)
[2022-01-07] MEDS: Ipratropium/Albuterol Neb 3 ML IH SCH ×4 (04:17→20:32)
[2022-01-07] MEDS: *HR* Heparin 5,000 UNIT/ML VIAL SQ SCH ×3 (06:41→20:56)
[2022-01-07] MEDS: Budesonide/Formoterol 160/4.5 1 PUFF INH IH SCH ×2 (08:24→20:32)
[2022-01-07] MEDS: Gabapentin 300 MG CAPSULE PO SCH ×3 (09:22→20:20)
[2022-01-07] MEDS: *HR* Buprenorphine HCl 8 MG TAB.SUBL SL SCH (09:22)
[2022-01-07] MEDS: Furosemide 20 MG/2 ML VIAL IVP SCH (09:23)
[2022-01-07] MEDS ORDERED: Tiotropium 10 INH DOSE IH SCH (10:00)
[2022-01-07] MEDS ORDERED: Azithromycin 250 MG TABLET PO SCH ×2 (11:15→22:00)
[2022-01-07] MEDS: MethylPREDNISolone 40 MG/ML VIAL IVP SCH (19:53)
[2022-01-08] MEDS: Ipratropium/Albuterol Neb 3 ML IH SCH ×2 (04:03→11:16)
[2022-01-08] MEDS: MethylPREDNISolone 40 MG/ML VIAL IVP SCH (06:01)
[2022-01-08] MEDS: *HR* Heparin 5,000 UNIT/ML VIAL SQ SCH (06:01)
[2022-01-08] MEDS: *HR* Buprenorphine HCl 8 MG TAB.SUBL SL SCH (10:04)
[2022-01-08] MEDS: Gabapentin 300 MG CAPSULE PO SCH (10:04)
[2022-01-08] MEDS: Furosemide 20 MG/2 ML VIAL IVP SCH (10:04)
[2022-01-08 11:09] VITALS: PULSE 77
[2022-01-08] MEDS: Budesonide/Formoterol 160/4.5 1 PUFF INH IH SCH (11:16)
[2022-01-08 11:49] VITALS: BP 148/82; TEMP 99
[2022-01-08 14:26] VITALS: O2SAT 96
[2022-01-09] MEDS ORDERED: predniSONE 20 MG TABLET PO SCH (09:00)
[2022-01-09] MEDS ORDERED: Furosemide 20 MG TABLET PO SCH (09:00)
== END 2022-01-08 15:02 | disposition home or self-care (01) ==
LOC: 2ANU 12:08 → EMEROOARM 12:08 → 2ANU 17:42
PROVIDERS: ADMIT General Practice; ATTEND General Practice

== ENCOUNTER 2022-01-18 12:20 | Inpatient (IN) ==
[2022-01-18] MEDS ORDERED: Isovue-370 500 ML BOTTLE IVP ONE (12:56)
[2022-01-18] MEDS ORDERED: 0.9 % Sodium Chloride 500 ML IVC ONE (12:58)
[2022-01-18] MEDS ORDERED: methylPREDNISolone 125 MG/2 ML VIAL IVP ONE (12:58)
[2022-01-18 14:18] LABS: Basophils % 0.2 %; Eosinophils # 0.2 K/mcL (0.0-0.6); Eosinophils % 2.3 %; Hematocrit 54.2 % (35.3-44.9); Hemoglobin 17.2 g/dL (11.5-15.4); Immature Granulocytes % 0.5 % (0-4); Lymphocytes # 1.3 K/mcL (0.6-4.6); Lymphocytes % 12.8 %; Mean Corpuscular HGB Conc 31.7 g/dL (31.6-35.5); Mean Corpuscular Hemoglobin 32.1 pg (28.0-33.3); Mean Corpuscular Volume 101.1 fL (83.0-100.0); Mean Platelet Volume 10.3 fL (9.4-12.4); Monocytes # 0.5 K/mcL (0.0-1.3); Monocytes % 5.4 %; Neutrophils # 7.8 K/mcL (1.6-8.9); Platelet Count 116 K/mcL (140-400); Red Blood Count 5.36 M/mcL (3.82-4.97); Red Cell Distribution Width 18.4 % (11.5-14.5); Segmented Neutrophils % 78.8 %
[2022-01-18 14:26] LABS: INR 1.1; Prothrombin Time 11.7 Seconds (9.4-12.1)
[2022-01-18 14:28] LABS: Activated Partial Thrombo Time 32.9 Seconds (26.0-36.0)
[2022-01-18] MEDS ORDERED: Ipratropium/Albuterol Neb 3 ML IH ONE ×2 (15:06→16:00)
[2022-01-18 15:24] LABS: VBG HCO3 32 mEq/L (21-27); VBG PCO2 58 mmHg (41-51); VBG PH 7.35 pH Units (7.32-7.42); VBG PO2 42 mmHg (25-50)
[2022-01-18] MEDS ORDERED: Acetaminophen 325 MG TABLET PO ONE (15:35)
[2022-01-18 15:52] LABS: Alanine Aminotransferase 10 Units/L (7-52); Albumin 3.5 g/dL (3.5-5.7); Albumin/Globulin Ratio 1.5 (1.1-2.2); Alkaline Phosphatase 59 Units/L (34-104); Aspartate Amino Transferase 11 Units/L (13-39); BUN/Creatinine Ratio 16 (6-26); Blood Urea Nitrogen 14 mg/dL (8-23); Calcium 8.8 mg/dL (8.6-10.3); Carbon Dioxide 31 mEq/L (23-29); Chloride 106 mEq/L (98-107); Globulin 2.4 g/dL (2.4-3.5); Glucose 83 mg/dL (70-105); Osmolality,Calculated 292 (280-300); Potassium 4.4 mEq/L (3.5-5.1); Sodium 141 mEq/L (136-145); Total Protein 5.9 g/dL (6.4-8.9); eGFR For African Americans > 60 (> 60); eGFR For Non-African Americans > 60 (> 60)
[2022-01-18] MEDS ORDERED: *HR* Heparin 5,000 UNIT/ML VIAL IVP PRN ×2 (17:32)
[2022-01-18] MEDS ORDERED: *HR* Heparin 5,000 UNIT/ML VIAL IVP ONE (17:32)
[2022-01-18] MEDS ORDERED: Melatonin 3 MG TABLET PO PRN (18:10)
[2022-01-18] MEDS ORDERED: Acetaminophen 325 MG TABLET PO PRN (18:10)
[2022-01-18] MEDS ORDERED: Naloxone 0.4 MG/ML INJ IVP PRN (18:10)
[2022-01-18] MEDS ORDERED: Ondansetron ODT 4 MG TAB.RAPDIS SL PRN (18:10)
[2022-01-18] MEDS ORDERED: Mag Hydrox/Al Hydrox/Simeth 30 ML UDC PO PRN (18:10)
[2022-01-18] MEDS: Heparin 25,000UNIT/250ML 1/2NS 25,000 UNIT/250 ML IV.SOLN IVC SCH (18:11)
[2022-01-18 18:41] LABS: Influenza A PCR Negative (Negative); Influenza B PCR Negative (Negative); Resp. Syncytial Virus PCR Negative (Negative)
[2022-01-18 18:43] LABS: SARS-CoV-2 by PCR (In House) Negative (Negative)
[2022-01-18] MEDS: Ipratropium/Albuterol Neb 3 ML IH SCH ×2 (20:09→23:47)
[2022-01-18 23:22] LABS: Hematocrit 50.2 % (35.3-44.9); Hemoglobin 15.9 g/dL (11.5-15.4); Immature Platelets 2.8 % (1.1-6.1); Mean Corpuscular HGB Conc 31.7 g/dL (31.6-35.5); Mean Corpuscular Hemoglobin 31.7 pg (28.0-33.3); Mean Corpuscular Volume 100.2 fL (83.0-100.0); Mean Platelet Volume 9.8 fL (9.4-12.4); Red Blood Count 5.01 M/mcL (3.82-4.97); Red Cell Distribution Width 17.6 % (11.5-14.5); White Blood Count 8.2 K/mcL (4.3-11.1)
[2022-01-18 23:42] LABS: BUN/Creatinine Ratio 19 (6-26); Blood Urea Nitrogen 16 mg/dL (8-23); Calcium 8.4 mg/dL (8.6-10.3); Carbon Dioxide 29 mEq/L (23-29); Chloride 106 mEq/L (98-107); Glucose 206 mg/dL (70-105); Osmolality,Calculated 295 (280-300); Potassium 5.3 mEq/L (3.5-5.1); Sodium 139 mEq/L (136-145); eGFR For African Americans > 60 (> 60); eGFR For Non-African Americans > 60 (> 60)
[2022-01-18 23:43] LABS: Troponin I < 0.03 ng/mL (< 0.04)
[2022-01-19] MEDS: Ipratropium/Albuterol Neb 3 ML IH SCH ×5 (03:48→19:38)
[2022-01-19] MEDS: Budesonide/Formoterol 160/4.5 1 PUFF INH IH SCH ×2 (08:04→19:38)
[2022-01-19] MEDS: Tiotropium 10 INH DOSE IH SCH (08:04)
[2022-01-19] MEDS: Gabapentin 300 MG CAPSULE PO SCH ×4 (08:25→20:47)
[2022-01-19] MEDS: Cholecalciferol (D-3) 1,000 UNIT (25MCG) TABLET PO SCH (08:25)
[2022-01-19] MEDS: predniSONE 20 MG TABLET PO SCH (08:25)
[2022-01-19] MEDS: Furosemide 20 MG TABLET PO SCH (08:25)
[2022-01-19] MEDS: *HR* Buprenorphine HCl 8 MG TAB.SUBL SL SCH (11:28)
[2022-01-19] MEDS: Heparin 25,000UNIT/250ML 1/2NS 25,000 UNIT/250 ML IV.SOLN IVC SCH (11:28)
[2022-01-19 15:36] LABS: Basophils % 0.2 %; Hematocrit 48.7 % (35.3-44.9); Hemoglobin 15.5 g/dL (11.5-15.4); Immature Granulocytes % 0.3 % (0-4); Lymphocytes # 0.4 K/mcL (0.6-4.6); Lymphocytes % 3.6 %; Mean Corpuscular HGB Conc 31.8 g/dL (31.6-35.5); Mean Corpuscular Hemoglobin 32.6 pg (28.0-33.3); Mean Corpuscular Volume 102.3 fL (83.0-100.0); Monocytes # 0.2 K/mcL (0.0-1.3); Monocytes % 1.5 %; Neutrophils # 9.3 K/mcL (1.6-8.9); Platelet Count 103 K/mcL (140-400); Red Blood Count 4.76 M/mcL (3.82-4.97); Red Cell Distribution Width 17.2 % (11.5-14.5); Segmented Neutrophils % 94.4 %; White Blood Count 9.8 K/mcL (4.3-11.1)
[2022-01-19 15:41] LABS: BUN/Creatinine Ratio 19 (6-26); Blood Urea Nitrogen 16 mg/dL (8-23); Calcium 8.5 mg/dL (8.6-10.3); Carbon Dioxide 26 mEq/L (23-29); Chloride 104 mEq/L (98-107); Glucose 165 mg/dL (70-105); Osmolality,Calculated 289 (280-300); Potassium 4.7 mEq/L (3.5-5.1); Sodium 137 mEq/L (136-145); eGFR For African Americans > 60 (> 60); eGFR For Non-African Americans > 60 (> 60)
[2022-01-19] MEDS: Apixaban 5 MG TABLET PO SCH (17:41)
[2022-01-20] MEDS: Ipratropium/Albuterol Neb 3 ML IH SCH ×4 (03:28→19:58)
[2022-01-20] MEDS: Apixaban 5 MG TABLET PO SCH ×2 (04:42→17:48)
[2022-01-20 07:08] LABS: Basophils % 0.3 %; Eosinophils # 0.1 K/mcL (0.0-0.6); Eosinophils % 1.4 %; Hematocrit 49.6 % (35.3-44.9); Hemoglobin 15.2 g/dL (11.5-15.4); Immature Granulocytes % 0.4 % (0-4); Lymphocytes # 1.5 K/mcL (0.6-4.6); Lymphocytes % 18.8 %; Mean Corpuscular HGB Conc 30.6 g/dL (31.6-35.5); Mean Corpuscular Hemoglobin 31.3 pg (28.0-33.3); Mean Corpuscular Volume 102.1 fL (83.0-100.0); Mean Platelet Volume 10.8 fL (9.4-12.4); Monocytes # 0.6 K/mcL (0.0-1.3); Monocytes % 7.9 %; Neutrophils # 5.5 K/mcL (1.6-8.9); Platelet Count 117 K/mcL (140-400); Red Blood Count 4.86 M/mcL (3.82-4.97); Red Cell Distribution Width 17.7 % (11.5-14.5); Segmented Neutrophils % 71.2 %; White Blood Count 7.8 K/mcL (4.3-11.1)
[2022-01-20 07:27] LABS: BUN/Creatinine Ratio 22 (6-26); Blood Urea Nitrogen 19 mg/dL (8-23); Carbon Dioxide 28 mEq/L (23-29); Chloride 106 mEq/L (98-107); Glucose 101 mg/dL (70-105); Osmolality,Calculated 292 (280-300); Potassium 4.3 mEq/L (3.5-5.1); Sodium 140 mEq/L (136-145); eGFR For African Americans > 60 (> 60); eGFR For Non-African Americans > 60 (> 60)
[2022-01-20] MEDS: *HR* Buprenorphine HCl 8 MG TAB.SUBL SL SCH (08:39)
[2022-01-20] MEDS: Gabapentin 300 MG CAPSULE PO SCH ×4 (08:39→20:00)
[2022-01-20] MEDS: predniSONE 20 MG TABLET PO SCH (08:39)
[2022-01-20] MEDS: Cholecalciferol (D-3) 1,000 UNIT (25MCG) TABLET PO SCH (08:39)
[2022-01-20] MEDS: Furosemide 20 MG TABLET PO SCH (08:39)
[2022-01-20] MEDS: Tiotropium 10 INH DOSE IH SCH (11:01)
[2022-01-20] MEDS: Budesonide/Formoterol 160/4.5 1 PUFF INH IH SCH ×2 (11:01→19:59)
[2022-01-21 03:18] LABS: BUN/Creatinine Ratio 24 (6-26); Blood Urea Nitrogen 21 mg/dL (8-23); Calcium 8.9 mg/dL (8.6-10.3); Carbon Dioxide 28 mEq/L (23-29); Chloride 105 mEq/L (98-107); Glucose 88 mg/dL (70-105); Osmolality,Calculated 290 (280-300); Potassium 4.2 mEq/L (3.5-5.1); Sodium 139 mEq/L (136-145); eGFR For African Americans > 60 (> 60); eGFR For Non-African Americans > 60 (> 60)
[2022-01-21 03:52] LABS: Basophils % 0.2 %; Eosinophils # 0.1 K/mcL (0.0-0.6); Eosinophils % 0.6 %; White Blood Count 8.5 K/mcL (4.3-11.1)
[2022-01-21 03:54] LABS: Hematocrit 45.4 % (35.3-44.9); Hemoglobin 14.5 g/dL (11.5-15.4); Immature Granulocytes % 0.5 % (0-4); Immature Platelets 5.9 % (1.1-6.1); Lymphocytes # 1.1 K/mcL (0.6-4.6); Lymphocytes % 13.3 %; Mean Corpuscular HGB Conc 31.9 g/dL (31.6-35.5); Mean Corpuscular Hemoglobin 31.9 pg (28.0-33.3); Mean Corpuscular Volume 99.8 fL (83.0-100.0); Mean Platelet Volume 12.2 fL (9.4-12.4); Monocytes # 0.5 K/mcL (0.0-1.3); Monocytes % 6.1 %; Neutrophils # 6.8 K/mcL (1.6-8.9); Red Blood Count 4.55 M/mcL (3.82-4.97); Red Cell Distribution Width 17.6 % (11.5-14.5); Segmented Neutrophils % 79.3 %
[2022-01-21] MEDS: Ipratropium/Albuterol Neb 3 ML IH SCH ×3 (04:06→15:40)
[2022-01-21 04:11] LABS: Platelet Count 87 K/mcL (140-400)
[2022-01-21] MEDS: Apixaban 5 MG TABLET PO SCH (04:48)
[2022-01-21] MEDS: *HR* Buprenorphine HCl 8 MG TAB.SUBL SL SCH (08:09)
[2022-01-21] MEDS: Furosemide 20 MG TABLET PO SCH (08:09)
[2022-01-21] MEDS: Cholecalciferol (D-3) 1,000 UNIT (25MCG) TABLET PO SCH (08:09)
[2022-01-21] MEDS: Gabapentin 300 MG CAPSULE PO SCH ×2 (08:09→13:59)
[2022-01-21] MEDS: predniSONE 20 MG TABLET PO SCH (08:10)
[2022-01-21] MEDS: Budesonide/Formoterol 160/4.5 1 PUFF INH IH SCH (09:57)
[2022-01-21] MEDS: Tiotropium 10 INH DOSE IH SCH (10:32)
[2022-01-21 15:55] VITALS: BP 126/111; PULSE 71; TEMP 98.6; O2SAT 98
== END 2022-01-21 16:30 | disposition home or self-care (01) | DRG 175 ==
LOC: EMEROOARM 12:20 → 3NENU 12:20 → SUATTDRO 18:40 → 3NENU 19:47
PROVIDERS: ADMIT Family Medicine; ATTEND Student in an Organized Health Care Education/Training Program

== ENCOUNTER 2022-01-27 20:59 | Inpatient (IN) ==
[2022-01-27] MEDS ORDERED: methylPREDNISolone 125 MG/2 ML VIAL IVP ONE (21:30)
[2022-01-27] MEDS ORDERED: Ipratropium/Albuterol Neb 3 ML IH ONE (21:30)
[2022-01-27 21:50] LABS: Basophils % 0.3 %; Eosinophils # 0.2 K/mcL (0.0-0.6); Eosinophils % 2.5 %; Hematocrit 50.4 % (35.3-44.9); Hemoglobin 16.4 g/dL (11.5-15.4); Immature Granulocytes % 0.6 % (0-4); Immature Platelets 2.3 % (1.1-6.1); Lymphocytes # 1.6 K/mcL (0.6-4.6); Lymphocytes % 18.4 %; Mean Corpuscular HGB Conc 32.5 g/dL (31.6-35.5); Mean Corpuscular Hemoglobin 32.6 pg (28.0-33.3); Mean Corpuscular Volume 100.2 fL (83.0-100.0); Mean Platelet Volume 9.4 fL (9.4-12.4); Monocytes # 0.5 K/mcL (0.0-1.3); Monocytes % 5.7 %; Neutrophils # 6.3 K/mcL (1.6-8.9); Red Blood Count 5.03 M/mcL (3.82-4.97); Red Cell Distribution Width 17.5 % (11.5-14.5); Segmented Neutrophils % 72.5 %; White Blood Count 8.7 K/mcL (4.3-11.1)
[2022-01-27 21:55] LABS: Platelet Count 140 K/mcL (140-400)
[2022-01-27 21:57] LABS: INR 1.4; Prothrombin Time 15.2 Seconds (9.4-12.1)
[2022-01-27 21:59] LABS: Activated Partial Thrombo Time 35.2 Seconds (26.0-36.0)
[2022-01-27 22:10] LABS: Alanine Aminotransferase 12 Units/L (7-52); Albumin 3.7 g/dL (3.5-5.7); Albumin/Globulin Ratio 1.5 (1.1-2.2); Alkaline Phosphatase 67 Units/L (34-104); Aspartate Amino Transferase 14 Units/L (13-39); BUN/Creatinine Ratio 24 (6-26); Bilirubin,Total 0.7 mg/dL (0.3-1.0); Blood Urea Nitrogen 21 mg/dL (8-23); Calcium 9.1 mg/dL (8.6-10.3); Carbon Dioxide 33 mEq/L (23-29); Chloride 101 mEq/L (98-107); Globulin 2.5 g/dL (2.4-3.5); Glucose 92 mg/dL (70-105); Osmolality,Calculated 291 (280-300); Potassium 4.6 mEq/L (3.5-5.1); Sodium 139 mEq/L (136-145); Total Protein 6.2 g/dL (6.4-8.9); Troponin I < 0.03 ng/mL (< 0.04); eGFR For African Americans > 60 (> 60); eGFR For Non-African Americans > 60 (> 60)
[2022-01-28] MEDS ORDERED: Aspirin 81 MG TAB.CHEW PO STA (00:01)
[2022-01-28] MEDS ORDERED: Ipratropium/Albuterol Neb 3 ML IH ONE (00:01)
[2022-01-28] MEDS ORDERED: Acetaminophen 325 MG TABLET PO PRN (02:53)
[2022-01-28] MEDS ORDERED: Ondansetron 4 MG/2 ML VIAL IVP PRN (02:53)
[2022-01-28] MEDS ORDERED: Naloxone 0.4 MG/ML INJ IVP PRN (02:53)
[2022-01-28] MEDS ORDERED: Melatonin 3 MG TABLET PO PRN (02:53)
[2022-01-28] MEDS ORDERED: Nicotine 2 MG GUM BC PRN (04:06)
[2022-01-28] MEDS ORDERED: *HR* Heparin 5,000 UNIT/ML VIAL IVP PRN ×2 (04:46)
[2022-01-28] MEDS ORDERED: *HR* Heparin 5,000 UNIT/ML VIAL IVP ONE (04:46)
[2022-01-28] MEDS ORDERED: Isovue-370 500 ML BOTTLE IVP ONE (04:47)
[2022-01-28] MEDS ORDERED: Benzonatate 100 MG CAPSULE PO PRN (04:53)
[2022-01-28] MEDS ORDERED: Nitroglycerin 0.4 MG TAB.SUBL SL ONE (04:54)
[2022-01-28] MEDS ORDERED: Heparin 25,000UNIT/250ML 1/2NS 25,000 UNIT/250 ML IV.SOLN IVC SCH ×2 (05:00→06:15)
[2022-01-28 05:12] LABS: BUN/Creatinine Ratio 24 (6-26); Blood Urea Nitrogen 21 mg/dL (8-23); Calcium 8.8 mg/dL (8.6-10.3); Carbon Dioxide 29 mEq/L (23-29); Chloride 101 mEq/L (98-107); Glucose 224 mg/dL (70-105); INR 1.1; Osmolality,Calculated 296 (280-300); Phosphorous 3.9 mg/dL (2.7-4.5); Prothrombin Time 12.7 Seconds (9.4-12.1); Sodium 138 mEq/L (136-145); eGFR For African Americans > 60 (> 60); eGFR For Non-African Americans > 60 (> 60)
[2022-01-28 05:15] LABS: Activated Partial Thrombo Time 27.7 Seconds (26.0-36.0)
[2022-01-28 05:44] LABS: Basophils % 0.1 %; Hematocrit 49.7 % (35.3-44.9); Hemoglobin 16.2 g/dL (11.5-15.4); Immature Granulocytes % 0.4 % (0-4); Lymphocytes # 0.4 K/mcL (0.6-4.6); Lymphocytes % 4.5 %; Mean Corpuscular HGB Conc 32.6 g/dL (31.6-35.5); Mean Corpuscular Hemoglobin 32.4 pg (28.0-33.3); Mean Corpuscular Volume 99.4 fL (83.0-100.0); Mean Platelet Volume 9.5 fL (9.4-12.4); Monocytes % 0.4 %; Neutrophils # 7.5 K/mcL (1.6-8.9); Platelet Count 129 K/mcL (140-400); Segmented Neutrophils % 94.6 %; White Blood Count 7.9 K/mcL (4.3-11.1)
[2022-01-28 06:09] LABS: Chol/HDL Ratio 3.3 (0-4.9); Cholesterol 181 mg/dL (< 200); HDL Cholesterol 55 mg/dL (40-59); LDL Cholesterol,Calculated 104 mg/dL (< 100); Triglycerides 111 mg/dL (< 150)
[2022-01-28] MEDS ORDERED: methylPREDNISolone 125 MG/2 ML VIAL IVP ONE (06:10)
[2022-01-28 06:41] LABS: Thyroid Stimulating Hormone 0.575 mcIU/mL (0.340-5.600)
[2022-01-28] MEDS: Ipratropium/Albuterol Neb 3 ML IH SCH ×5 (07:38→23:21)
[2022-01-28] MEDS: predniSONE 20 MG TABLET PO SCH (07:44)
[2022-01-28] MEDS: Aspirin 81 MG TAB.CHEW PO SCH (07:44)
[2022-01-28] MEDS: Nicotine 21 MG PATCH.TD24 TD SCH (07:45)
[2022-01-28] MEDS ORDERED: Perflutren Lipid Microsphere 1.3 ML in 0.9 % Sodium Chloride 8.7 ML IVP PRN (07:51)
[2022-01-28] MEDS ORDERED: Chlorhexidine Rinse 15 ML MOUTHWASH MM SCH (09:00)
[2022-01-28] MEDS ORDERED: Apixaban 5 MG TABLET PO SCH (09:00)
[2022-01-28] MEDS ORDERED: Buprenorphine Hcl/Naloxone Hcl 8-2 MG SL SCH (09:00)
[2022-01-28] MEDS ORDERED: *HR* Enoxaparin 100 MG/ML SYRINGE SQ SCH ×3 (09:15→09:20)
[2022-01-28] MEDS: *HR* Enoxaparin 100 MG/ML SYRINGE SQ SCH ×2 (09:52→20:41)
[2022-01-28] MEDS: Azithromycin 250 MG TABLET PO SCH (09:52)
[2022-01-28] MEDS ORDERED: Budesonide/Formoterol 160/4.5 1 PUFF INH IH SCH (10:00)
[2022-01-28 10:24] LABS: Estimated Average Glucose 126 mg/dl
[2022-01-28] MEDS: Gabapentin 300 MG CAPSULE PO SCH ×3 (11:43→20:40)
[2022-01-28] MEDS: Furosemide 20 MG TABLET PO SCH (11:43)
[2022-01-28] MEDS: *HR* Buprenorphine HCl 8 MG TAB.SUBL SL SCH (13:43)
[2022-01-28] MEDS ORDERED: Budesonide/Formoterol 160/4.5 1 PUFF INH IH ONE (19:55)
[2022-01-28] MEDS: Budesonide/Formoterol 160/4.5 1 PUFF INH IH SCH (19:59)
[2022-01-29 01:04] LABS: Mean Platelet Volume 10.5 fL (9.4-12.4); White Blood Count 7.6 K/mcL (4.3-11.1)
[2022-01-29 01:06] LABS: Hematocrit 46.7 % (35.3-44.9); Immature Platelets 3.8 % (1.1-6.1); Mean Corpuscular HGB Conc 32.1 g/dL (31.6-35.5); Mean Corpuscular Hemoglobin 31.8 pg (28.0-33.3); Mean Corpuscular Volume 98.9 fL (83.0-100.0); Red Blood Count 4.72 M/mcL (3.82-4.97); Red Cell Distribution Width 17.1 % (11.5-14.5)
[2022-01-29 01:24] LABS: BUN/Creatinine Ratio 24 (6-26); Blood Urea Nitrogen 23 mg/dL (8-23); Carbon Dioxide 28 mEq/L (23-29); Chloride 103 mEq/L (98-107); Glucose 189 mg/dL (70-105); Osmolality,Calculated 297 (280-300); Potassium 4.7 mEq/L (3.5-5.1); Sodium 139 mEq/L (136-145); eGFR For African Americans > 60 (> 60); eGFR For Non-African Americans 59 (> 60)
[2022-01-29] MEDS: Ipratropium/Albuterol Neb 3 ML IH SCH ×3 (03:49→11:22)
[2022-01-29 06:35] VITALS: TEMP 97.6
[2022-01-29] MEDS: Gabapentin 300 MG CAPSULE PO SCH ×2 (07:48→12:42)
[2022-01-29] MEDS: Aspirin 81 MG TAB.CHEW PO SCH (07:48)
[2022-01-29] MEDS: *HR* Buprenorphine HCl 8 MG TAB.SUBL SL SCH (07:48)
[2022-01-29] MEDS: Furosemide 20 MG TABLET PO SCH (07:48)
[2022-01-29] MEDS: predniSONE 20 MG TABLET PO SCH (07:48)
[2022-01-29] MEDS: Azithromycin 250 MG TABLET PO SCH (07:48)
[2022-01-29] MEDS: *HR* Enoxaparin 100 MG/ML SYRINGE SQ SCH (07:49)
[2022-01-29] MEDS: Nicotine 21 MG PATCH.TD24 TD SCH (07:49)
[2022-01-29] MEDS: Budesonide/Formoterol 160/4.5 1 PUFF INH IH SCH (08:11)
[2022-01-29] MEDS ORDERED: Tiotropium 10 INH DOSE IH SCH (10:00)
[2022-01-29 10:39] VITALS: BP 145/55; PULSE 77
[2022-01-29 12:03] VITALS: O2SAT 92
== END 2022-01-29 15:16 | disposition home or self-care (01) | DRG 190 ==
LOC: 2NENU 20:59 → EMEROOARM 20:59 → SUATTDRO 01-28 02:17 → 2NENU 01-28 02:48
PROVIDERS: ADMIT Internal Medicine; ATTEND Internal Medicine

== ENCOUNTER 2022-04-11 09:04 | Observation (INO) ==
[2022-04-11] MEDS ORDERED: Nitroglycerin 0.4 MG TAB.SUBL SL SCH (10:30)
[2022-04-11 10:57] LABS: Basophils % 0.3 %; Eosinophils # 0.1 K/mcL (0.0-0.6); Eosinophils % 1.6 %; Hematocrit 50.9 % (35.3-44.9); Hemoglobin 16.9 g/dL (11.5-15.4); Immature Granulocytes % 0.7 % (0-4); Lymphocytes # 0.8 K/mcL (0.6-4.6); Mean Corpuscular HGB Conc 33.2 g/dL (31.6-35.5); Mean Corpuscular Hemoglobin 33.5 pg (28.0-33.3); Mean Platelet Volume 9.5 fL (9.4-12.4); Monocytes # 0.4 K/mcL (0.0-1.3); Monocytes % 6.6 %; Neutrophils # 4.8 K/mcL (1.6-8.9); Platelet Count 139 K/mcL (140-400); Red Blood Count 5.04 M/mcL (3.82-4.97); Red Cell Distribution Width 14.2 % (11.5-14.5); Segmented Neutrophils % 77.8 %; White Blood Count 6.1 K/mcL (4.3-11.1)
[2022-04-11] MEDS ORDERED: Ipratropium/Albuterol Neb 3 ML IH ONE (11:16)
[2022-04-11] MEDS ORDERED: Morphine Sulfate 2 MG/ML SYRINGE IVP ONE (11:16)
[2022-04-11] MEDS ORDERED: Albuterol 2.5 MG/3 ML NEBULIZER IH ONE (11:16)
[2022-04-11 11:35] LABS: Alanine Aminotransferase 6 Units/L (7-52); Albumin 3.8 g/dL (3.5-5.7); Albumin/Globulin Ratio 1.3 (1.1-2.2); Alkaline Phosphatase 67 Units/L (34-104); Aspartate Amino Transferase 12 Units/L (13-39); BUN/Creatinine Ratio 8 (6-26); Bilirubin,Total 1.1 mg/dL (0.3-1.0); Blood Urea Nitrogen 7 mg/dL (8-23); Calcium 9.1 mg/dL (8.6-10.3); Carbon Dioxide 27 mEq/L (23-29); Chloride 105 mEq/L (98-107); Glucose 94 mg/dL (70-105); Lipase 3 Units/L (11-82); Osmolality,Calculated 286 (280-300); Sodium 139 mEq/L (136-145); Total Protein 6.8 g/dL (6.4-8.9); Troponin I < 0.03 ng/mL (< 0.04); eGFR For African Americans > 60 (> 60); eGFR For Non-African Americans > 60 (> 60)
[2022-04-11] MEDS ORDERED: Ondansetron 4 MG/2 ML VIAL IVP ONE (12:55)
[2022-04-11] MEDS ORDERED: *HR* Buprenorphine HCl 8 MG TAB.SUBL SL ONE (13:40)
[2022-04-11] MEDS ORDERED: *HR* Buprenorphine HCl 2 MG SUBLINGUAL TABLET SL ONE (13:45)
[2022-04-11] MEDS ORDERED: Isovue-370 500 ML BOTTLE IVP ONE (14:04)
[2022-04-11 15:02] LABS: Magnesium 1.9 mg/dL (1.6-2.6); Troponin I < 0.03 ng/mL (< 0.04)
[2022-04-11] MEDS ORDERED: Perflutren Lipid Microsphere 1.3 ML in 0.9 % Sodium Chloride 8.7 ML IVP PRN (16:19)
[2022-04-11] MEDS ORDERED: Nitroglycerin 0.4 MG TAB.SUBL SL PRN (16:19)
[2022-04-11] MEDS ORDERED: Naloxone 0.4 MG/ML INJ IVP PRN (16:19)
[2022-04-11] MEDS: Morphine Sulfate 2 MG/ML SYRINGE IVP PRN ×2 (17:05→21:00)
[2022-04-12] MEDS: Morphine Sulfate 2 MG/ML SYRINGE IVP PRN ×6 (00:18→18:35)
[2022-04-12] MEDS: Ondansetron 4 MG/2 ML VIAL IVP PRN ×2 (00:54→18:39)
[2022-04-12 05:46] LABS: Basophils % 0.4 %; Eosinophils # 0.1 K/mcL (0.0-0.6); Eosinophils % 1.2 %; Hematocrit 51.2 % (35.3-44.9); Hemoglobin 16.5 g/dL (11.5-15.4); Immature Granulocytes % 0.3 % (0-4); Lymphocytes # 0.9 K/mcL (0.6-4.6); Lymphocytes % 12.5 %; Mean Corpuscular HGB Conc 32.2 g/dL (31.6-35.5); Mean Corpuscular Hemoglobin 32.2 pg (28.0-33.3); Mean Platelet Volume 10.7 fL (9.4-12.4); Monocytes # 0.5 K/mcL (0.0-1.3); Monocytes % 7.1 %; Neutrophils # 5.8 K/mcL (1.6-8.9); Platelet Count 155 K/mcL (140-400); Red Blood Count 5.12 M/mcL (3.82-4.97); Red Cell Distribution Width 14.1 % (11.5-14.5); Segmented Neutrophils % 78.5 %; White Blood Count 7.3 K/mcL (4.3-11.1)
[2022-04-12 05:54] LABS: BUN/Creatinine Ratio 11 (6-26); Blood Urea Nitrogen 9 mg/dL (8-23); Carbon Dioxide 25 mEq/L (23-29); Chloride 106 mEq/L (98-107); Chol/HDL Ratio 4.6 (0-4.9); Cholesterol 132 mg/dL (< 200); Glucose 88 mg/dL (70-105); HDL Cholesterol 29 mg/dL (40-59); LDL Cholesterol,Calculated 84 mg/dL (< 100); Osmolality,Calculated 288 (280-300); Potassium 4.2 mEq/L (3.5-5.1); Sodium 140 mEq/L (136-145); Triglycerides 95 mg/dL (< 150); eGFR For African Americans > 60 (> 60); eGFR For Non-African Americans > 60 (> 60)
[2022-04-12] MEDS: Aspirin 81 MG TAB.CHEW PO SCH (07:48)
[2022-04-12] MEDS: Gabapentin 400 MG CAPSULE PO SCH ×4 (09:26→20:46)
[2022-04-12] MEDS: Furosemide 40 MG TABLET PO SCH (09:26)
[2022-04-12 09:30] LABS: INR 1.2; Prothrombin Time 13.4 Seconds (9.4-12.1)
[2022-04-12] MEDS: *HR* Buprenorphine HCl 8 MG TAB.SUBL SL SCH ×2 (10:17→20:46)
[2022-04-12] MEDS: Apixaban 5 MG TABLET PO SCH (20:46)
[2022-04-13] MEDS: Morphine Sulfate 2 MG/ML SYRINGE IVP PRN ×2 (00:07→09:00)
[2022-04-13 02:58] LABS: Basophils % 0.4 %; Eosinophils # 0.3 K/mcL (0.0-0.6); Eosinophils % 5.6 %; Hematocrit 48.6 % (35.3-44.9); Hemoglobin 15.7 g/dL (11.5-15.4); Immature Granulocytes % 0.2 % (0-4); Lymphocytes # 1.3 K/mcL (0.6-4.6); Lymphocytes % 24.5 %; Mean Corpuscular HGB Conc 32.3 g/dL (31.6-35.5); Mean Corpuscular Hemoglobin 32.8 pg (28.0-33.3); Mean Corpuscular Volume 101.7 fL (83.0-100.0); Mean Platelet Volume 9.6 fL (9.4-12.4); Monocytes # 0.5 K/mcL (0.0-1.3); Monocytes % 9.5 %; Neutrophils # 3.2 K/mcL (1.6-8.9); Platelet Count 145 K/mcL (140-400); Red Blood Count 4.78 M/mcL (3.82-4.97); Red Cell Distribution Width 14.2 % (11.5-14.5); Segmented Neutrophils % 59.8 %; White Blood Count 5.4 K/mcL (4.3-11.1)
[2022-04-13 03:28] LABS: Amphetamine Screen,Urine Negative ng/mL (Cutoff=1000); Barbiturate Screen,Urine Negative ng/mL (Cutoff=200); Benzodiazepines Screen,Urine Negative ng/mL (Cutoff=200); Cannabinoid Screen,Urine Negative ng/mL (Cutoff = 50); Cocaine Screen,Urine Negative ng/mL (Cutoff= 300); Opiate Screen,Urine Positive ng/mL (Cutoff=300); Phencyclidine Screen,Urine Negative ng/mL (Cutoff=25)
[2022-04-13] MEDS: Aspirin 81 MG TAB.CHEW PO SCH (09:00)
[2022-04-13] MEDS: Gabapentin 400 MG CAPSULE PO SCH ×2 (09:00→12:34)
[2022-04-13] MEDS: *HR* Buprenorphine HCl 8 MG TAB.SUBL SL SCH (09:00)
[2022-04-13] MEDS: Furosemide 40 MG TABLET PO SCH (09:00)
[2022-04-13] MEDS: Apixaban 5 MG TABLET PO SCH (09:00)
[2022-04-13 10:48] VITALS: BP 132/81; PULSE 85; TEMP 98.5; O2SAT 90
== END 2022-04-13 12:39 | disposition home or self-care (01) ==
LOC: 3BNU 09:04 → EMEROOARM 09:04 → SUATTDRO 14:54 → 3BNU 15:40
PROVIDERS: ADMIT Pharmacist; ATTEND Internal Medicine